=== PATIENT | male | born 1940 | race Caucasian/White ===

== ENCOUNTER 2017-12-24 12:53 | Emergency (ER) | payer OTHER ==
--- NOTE | 2017-12-24 13:30 | CPEKG ---
Test Reason : OPEN Blood Pressure : / mmHG Vent. Rate : 091 BPM Atrial Rate : 091 BPM P-R Int : 148 ms QRS Dur : 083 ms QT Int : 350 ms P-R-T Axes : 045 050 059 degrees QTc Int : 431 ms Sinus rhythm Confirmed by Ian Arango ([id number]) on 12/24/2017 1:29:32 PM Referred By: Confirmed By:Ian Arango
--- NOTE | 2017-12-24 13:54 | EDPHY ---
H & P Time Seen by Provider: 12/24/17 13:01 HPI/ROS: Chief complaint. Fatigue, shortness of breath HPI. Patient is 77-year-old male presents emergency department with complaint that for the past 3 days he does not have any energy and he is fatigued after normal activity. It began 3 days ago after a bike ride when he came home and he was unusually tired. 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 Today he was [facility]ering [facility] and caring some heavy things and again felt very tired. He feels slightly short of breath. He did have vomiting x3 today however no abdominal pain. Denies upper respiratory symptoms. No fever. No cough. No abdominal pain. No urinary symptoms. No diarrhea. He notes that his urine was quite dark yesterday and increased fluids. He has a history of lymphoma and apparently over the last several months the lymphomas come back and he has been on a new medication for the past 3 months. No chest pain. No unusual leg pain or swelling ROS Constitutional. Fatigue Eyes. no problems with vision ENT. no sore throat, no nasal drainage Cardiovascular. no chest pain Respiratory. Slight shortness of breath without cough Abdominal. No abdominal pain but vomiting x3. . no problems urinating MS. no calf pain/swelling, no neck/back pain, no joint pain Skin. no rash Lymph. no swollen glands Neuro. no headache, no dizziness, no difficulty walking or with speech Past Medical/Surgical History: Lymphoma Social History: , nonsmoker, no alcohol Smoking Status: Former smoker Physical Exam: General Appearance: Alert well-developed male mild distress vital signs significant for heart rate 95 and O2 saturation 92%. Blood pressure 104/60 Eyes: Pupils equal and round no pallor or injection. ENT, pharynx without injection. Mucous membranes are moist Respiratory: No retractions. Maybe slight rales and rhonchi in the right lower lobe Cardiovascular: Regular rate and rhythm. Gastrointestinal: Abdomen is soft and nontender, no masses, bowel sounds normal. Neurological: Awake and alert, sensory and motor exams grossly normal. Skin: Warm and dry, no rashes. Musculoskeletal: Neck is supple nontender. Extremities symmetrical, full range of motion. Psychiatric: Patient is oriented X 3, there is no agitation. Constitutional: Initial Vital Signs Temperature (C) 36.6 C 12/24/17 12:57 Heart Rate 95 12/24/17 12:57 Respiratory Rate 18 12/24/17 12:57 Blood Pressure 104/60 12/24/17 12:57 O2 Sat (%) 92 12/24/17 12:57 O2 Delivery Mode Room Air Allergies/Adverse Reactions: No Known Allergies Allergy (Verified 12/24/17 12:56) Home Medications: Medication Instructions Recorded Albuterol Hfa Anes Only [Proair 2 puffs IH QID PRN #1 mdi 12/24/17 Hfa Icu (*)] Calquence 12/24/17 Medical Decision Making - Diagnostics EKG Interpretation: EKG interpreted by me shows normal sinus rhythm normal interval and axis. QRS is normal there is no significant ST elevation or depression. There is no arrhythmia. The rate is 91 Imaging Results: Imaging Impressions Chest X-Ray 12/24/17 13:55 Impression: Large lung findings suggest emphysema/COPD. No pneumonia or failure. Chest x-ray reviewed by me shows evidence of COPD. No obvious pneumonia. Procedures: IV normal saline ED Course/Re-evaluation: Labs reviewed by me and are normal. Mild CHF on BNP. However no clinical findings of CHF. He does not meet criteria for pulmonary embolus. EKG is normal troponin is normal. Chest x-ray shows evidence for COPD. No evidence for infection or sepsis On re-evaluation 3:00 p.m. Patient is stable. The patient, his , and I discussed imaging lab EKG study results. We discussed treatment plan including criteria for return and importance of follow-up and further evaluation. They expressed understanding and agreement. Patient declines prescription for prednisone Differential Diagnosis: See above discussion - Data Points Laboratory Results: Laboratory Results 12/24/17 13:55 12/24/17 13:10 12/24/17 12/24/17 12/24/17 14:20 13:55 13:18 WBC 3.97 10^3/uL 10^3/uL (3.80-9.50) RBC 4.21 10^6/uL L 10^6/uL (4.40-6.38) Hgb 14.0 g/dL g/dL (13.7-17.5) Hct 41.4 % % (40.0-51.0) MCV 98.3 fL fL (81.5-99.8) MCH 33.3 pg pg (27.9-34.1) MCHC 33.8 g/dL g/dL (32.4-36.7) RDW 13.5 % % (11.5-15.2) Plt Count 62 10^3/uL L 10^3/uL (150-400) MPV 10.7 fL fL (8.7-11.7) Neut % (Auto) Not Reported Lymph % (Auto) Not Reported [place] % (Auto) Not Reported Eos % (Auto) Not Reported Baso % (Auto) Not Reported Nucleat RBC Rel Count Not Reported Absolute Neuts (auto) Not Reported Absolute Lymphs (auto) Not Reported Absolute Monos (auto) Not Reported Absolute Eos (auto) Not Reported Absolute Basos (auto) Not Reported Absolute Nucleated RBC Not Reported Immature Gran % Not Reported Seg Neutrophils % 77.3 % % Band Neutrophils % 9.3 % % Lymphocytes % 4.1 % % Monocytes % 9.3 % % Eosinophils % 0.0 % % Basophils % 0.0 % % Metamyelocytes % 0.0 % % Myelocytes % 0.0 % % Promyelocytes % 0.0 % % Blast Cells % 0.0 % % Immature Gran # Not Reported Absolute Seg Neuts 3.07 10^/uL 10^/uL (1.70-6.50) Absolute Band Neuts 0.37 10^3/uL 10^3/uL (0.00-0.70) Absolute Lymphocytes 0.16 10^3/uL L 10^3/uL (1.00-3.00) Absolute Monocytes 0.37 10^3/uL 10^3/uL (0.30-0.80) Absolute Eosinophils 0.00 10^3/uL L 10^3/uL (0.03-0.40) Absolute Basophils 0.00 10^3/uL L 10^3/uL (0.02-0.10) Absolute Metamyelocyte 0.00 10^3/mL 10^3/mL (0.00-0.00) Absolute Myelocytes 0.00 10^3/mL 10^3/mL (0.00-0.00) Absolute Promyelocytes 0.00 10^3/uL 10^3/uL (0.00-0.00) Absolute Plasma Cells 0.00 10^3/uL 10^3/uL (0.00-0.00) Nucleated RBCs 0 /100 WBC /100 WBC (0-0) Absolute Blast Cells 0.00 10^3/uL 10^3/uL (0.00-0.00) Plasma Cells % 0.0 % % Toxic Granulation PRESENT H Platelet Estimate DECREASED L (ADEQ) VBG Lactic Acid 0.7 mmol/L mmol/L (0.7-2.1) Sodium Potassium Chloride Carbon Dioxide Anion Gap BUN Creatinine Estimated GFR Glucose Calcium POC Troponin I 0.01 ng/mL ng/mL (0.00-0.08) NT-Pro-B Natriuret Pep 12/24/17 13:10 WBC RBC Hgb Hct MCV MCH MCHC RDW Plt Count MPV Neut % (Auto) Lymph % (Auto) [place] % (Auto) Eos % (Auto) Baso % (Auto) Nucleat RBC Rel Count Absolute Neuts (auto) Absolute Lymphs (auto) Absolute Monos (auto) Absolute Eos (auto) Absolute Basos (auto) Absolute Nucleated RBC Immature Gran % Seg Neutrophils % Band Neutrophils % Lymphocytes % Monocytes % Eosinophils % Basophils % Metamyelocytes % Myelocytes % Promyelocytes % Blast Cells % Immature Gran # Absolute Seg Neuts Absolute Band Neuts Absolute Lymphocytes Absolute Monocytes Absolute Eosinophils Absolute Basophils Absolute Metamyelocyte Absolute Myelocytes Absolute Promyelocytes Absolute Plasma Cells Nucleated RBCs Absolute Blast Cells Plasma Cells % Toxic Granulation Platelet Estimate VBG Lactic Acid Sodium 135 mEq/L mEq/L (135-145) Potassium 4.0 mEq/L mEq/L (3.3-5.0) Chloride 100 mEq/L mEq/L (97-110) Carbon Dioxide 25 mEq/l mEq/l (22-31) Anion Gap 10 mEq/L mEq/L (8-16) BUN 25 mg/dL H mg/dL (7-23) Creatinine 1.1 mg/dL mg/dL (0.7-1.3) Estimated GFR > 60 Glucose 126 mg/dL H mg/dL (70-100) Calcium 9.0 mg/dL mg/dL (8.5-10.4) POC Troponin I NT-Pro-B Natriuret Pep 783 pg/mL H pg/mL (0-450) Medications Given: Discontinued Medications Sodium Chloride (Ns) 1,000 mls @ 0 mls/hr IV ONCE ONE; Wide Open PRN Reason: Protocol Stop: 12/24/17 13:56 Last Admin: 12/24/17 14:14 Dose: 1,000 mls Point of Care Test Results: Chemistry 12/24/17 13:18 POC Troponin I 0.01 ng/mL ng/mL (0.00-0.08) Departure - Departure Disposition: Home, Routine, Self-Care Clinical Impression: Chronic obstructive pulmonary disease with acute exacerbation Condition: Good Instructions: COPD (Chronic Obstructive Pulmonary Disease) (ED) Additional Instructions: Use the inhaler 2 puffs every 4-6 hours to help with breathing Drink plenty of fluids and stay hydrated. Easy activity next 1-2 days. Return for worsening symptoms. Re-evaluation in 2 days if not improved Referrals: Sunitha Salazar MD [Primary Care Provider] - 2-3 days, if not improved Prescriptions: Albuterol Hfa Anes Only [Proair Hfa Icu (*)] 2 puffs IH QID PRN #1 mdi PRN Reason: Short Of Breath/Dyspnea
[2017-12-24] MEDS ORDERED: NS 1,000 ML IV ONE (13:55)
[2017-12-24 14:30] LABS: PLATELET COUNT 62 10^3/uL (150-400)
[2017-12-24 15:24] VITALS: BP 125/70
== END 2017-12-24 15:24 | disposition home or self-care (01) ==
DX: R06.02 Shortness of breath (principal); J44.9 Chronic obstructive pulmonary disease, unspecified; C85.90 Non-Hodgkin lymphoma, unspecified, unspecified site; E86.9 Volume depletion, unspecified
CPT/HCPCS: 84484-PO

== ENCOUNTER 2018-03-07 15:35 | Inpatient (IN) | payer OTHER ==
[2018-03-07 15:58] LABS: PLATELET COUNT 153 10^3/uL (150-400)
--- NOTE | 2018-03-07 16:08 | EDPHY ---
H & P Time Seen by Provider: 03/07/18 15:51 HPI/ROS: CHIEF COMPLAINT: Malaise, nausea, vomiting, fever HISTORY OF PRESENT ILLNESS: The patient is a 69-year-old male with a complicated past medical history. Patient has a history of lymphoma. 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 He was not [facility] for 10 days and discharged on February 09. The family was told that the virus cross the blood brain barrier and caused him to have encephalopathy as well as meningitis. This was diagnosed through a lumbar puncture. The patient states that he developed a fever today to 101. He had multiple episodes of nausea and vomiting. No diarrhea. No abdominal pain. Patient has no focal weakness or numbness. No visual change. No neck stiffness. No photophobia. The patient's family states that he is more confused from his baseline. This is been progressing more rapidly over the past few days. REVIEW OF SYSTEMS: 10 systems were reveiwed and are negative with the exception of the elements mentioned in the history of present illness. 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 He was discharged from [facility] to [facility] at the end of January. Smoking Status: Former smoker Physical Exam: 36.8, 123/76, 84, 28, 98% on room air GENERAL: No acute distress, alert. HEENT: Eyes normal to inspection, normal pharynx, no signs of dehydration. NECK: Normal, supple. No meningismus RESPIRATORY: Clear to auscultation bilaterally, no rales, rhonchi or wheezing. CVS: Regular rate and rhythm, no rubs, murmurs, or gallops. ABDOMEN: Soft, nontender, nondistended, no organomegaly. BACK: Normal to inspection, no CVA tenderness. SKIN: Normal color, no rash, warm, dry. No pallor. EXTREMITIES: No pedal edema, no calf tenderness, no Homans sign or cords, no joint swelling. NEURO/PSYCH: Higher functions: Alert and Oriented x3. Normal speech and cognition. Normal mood and affect. Patient with short-term memory. (noted the family thinks the patient is confused from baseline) Cranial nerves: Normal as tested. Cerebellar: Normal as tested. Good finger to nose, good [id number], normal gait. Peripheral exam: Normal motor exam. Normal sensation. Normal reflexes. Constitutional: Initial Vital Signs Temperature (C) 36.8 C 03/07/18 15:45 Heart Rate 84 03/07/18 15:45 Respiratory Rate 28 H 03/07/18 15:45 Blood Pressure 123/76 H 03/07/18 15:45 O2 Sat (%) 93 03/07/18 15:45 O2 Delivery Mode Room Air O2 (L/minute) 2 Allergies/Adverse Reactions: No Known Allergies Allergy (Verified 12/24/17 12:56) Home Medications: Medication Instructions Recorded Albuterol Hfa Anes Only [Proair 2 puffs IH QID PRN #1 mdi 12/24/17 Hfa Icu (*)] [place]quence 12/24/17 Medical Decision Making - Diagnostics Imaging Results: Imaging Impressions Chest X-Ray 03/07/18 16:11 Impression: 1. No acute findings in the chest. 2. COPD/emphysema. 3. Additional findings as above. Head CT 03/07/18 16:12 Impression: 1. No acute intracranial findings. 2. Diffuse cerebral atrophy with periventricular and subcortical low attenuation consistent with chronic microvascular ischemic gliosis. Findings discussed with KELLY MCKEON 03/07/2018 at 16:57. ED Course/Re-evaluation: In the emergency department I initially evaluated the patient. I discussed the plan with the family and answered all her questions. Laboratory studies, chest x-ray, head CT, EKG were ordered. Patient was placed on droplet precautions. Patient's sodium is low 132. I compared this with a previous value of 135. Her potassium is normal 3.9. Chloride low at 94. Anion gap is 12 %period% creatinine is 1.0. Calcium is normal. Patient's white count is normal at 6.4. Hematocrit 37.8. Platelet count is 153. Lactic acid is 0.9. EKG shows normal sinus rhythm, normal rate, normal axis, normal intervals. There are no ST or T-wave abnormalities. EKG is normal as interpreted by me. On recheck the patient is stable. Head CT: Please refer the dictated report. No acute disease noted. Chest x-ray: COPD. No infiltrate. I discussed the results with the patient and family. I answered all her questions. On recheck the patient stated he was feeling well. He had no complaints of headache. Vital signs were stable. I discussed the plan for admission. I answered all her questions. I discussed case with Dr. Connors. He will admit the patient. Patient will be kept on droplet precautions. Differential Diagnosis: My differential includes but is not limited to meningitis, encephalitis, encephalopathy, electrolyte abnormality, sugar abnormality, bacteremia, sepsis, gastroenteritis Critical Care Time: Patient required 35 min of critical care time. This was exclusive of any unbundled procedure. This was due to the patient's presentation, discussion with family, review of old records, recent history of encephalitis and meningitis, need for isolation, and admission. - Data Points Laboratory Results: Laboratory Results 03/07/18 15:52 03/07/18 15:52 03/07/18 03/07/18 03/07/18 16:20 16:17 15:52 WBC RBC Hgb Hct MCV MCH MCHC RDW Plt Count MPV Neut % (Auto) Lymph % (Auto) [place] % (Auto) Eos % (Auto) Baso % (Auto) Nucleat RBC Rel Count Absolute Neuts (auto) Absolute Lymphs (auto) Absolute Monos (auto) Absolute Eos (auto) Absolute Basos (auto) Absolute Nucleated RBC Immature Gran % Immature Gran # PT 13.2 SEC SEC (12.0-15.0) INR 0.98 (0.83-1.16) APTT 27.4 SEC SEC (23.0-38.0) VBG Lactic Acid 0.9 mmol/L mmol/L (0.7-2.1) Sodium 132 mEq/L L mEq/L (135-145) Potassium 3.9 mEq/L mEq/L (3.3-5.0) Chloride 94 mEq/L L mEq/L (97-110) Carbon Dioxide 26 mEq/l mEq/l (22-31) Anion Gap 12 mEq/L mEq/L (6-14) BUN 15 mg/dL mg/dL (7-23) Creatinine 1.0 mg/dL mg/dL (0.7-1.3) Estimated GFR > 60 Glucose 124 mg/dL H mg/dL (70-100) Calcium 9.8 mg/dL mg/dL (8.5-10.4) Total Bilirubin Conjugated Bilirubin Unconjugated Bilirubin AST ALT Alkaline Phosphatase Total Protein Albumin Lipase 03/07/18 03/07/18 15:52 15:30 WBC 6.44 10^3/uL 10^3/uL (3.80-9.50) RBC 3.89 10^6/uL L 10^6/uL (4.40-6.38) Hgb 13.3 g/dL L g/dL (13.7-17.5) Hct 37.8 % L % (40.0-51.0) MCV 97.2 fL fL (81.5-99.8) MCH 34.2 pg H pg (27.9-34.1) MCHC 35.2 g/dL g/dL (32.4-36.7) RDW 15.2 % % (11.5-15.2) Plt Count 153 10^3/uL 10^3/uL (150-400) MPV 9.6 fL fL (8.7-11.7) Neut % (Auto) 73.8 % % (39.3-74.2) Lymph % (Auto) 16.5 % % (15.0-45.0) [place] % (Auto) 8.9 % % (4.5-13.0) Eos % (Auto) 0.2 % L % (0.6-7.6) Baso % (Auto) 0.3 % % (0.3-1.7) Nucleat RBC Rel Count 0.0 % % (0.0-0.2) Absolute Neuts (auto) 4.76 10^3/uL 10^3/uL (1.70-6.50) Absolute Lymphs (auto) 1.06 10^3/uL 10^3/uL (1.00-3.00) Absolute Monos (auto) 0.57 10^3/uL 10^3/uL (0.30-0.80) Absolute Eos (auto) 0.01 10^3/uL L 10^3/uL (0.03-0.40) Absolute Basos (auto) 0.02 10^3/uL 10^3/uL (0.02-0.10) Absolute Nucleated RBC 0.00 10^3/uL 10^3/uL (0-0.01) Immature Gran % 0.3 % % (0.0-1.1) Immature Gran # 0.02 10^3/uL 10^3/uL (0.00-0.10) PT INR APTT VBG Lactic Acid Sodium Potassium Chloride Carbon Dioxide Anion Gap BUN Creatinine Estimated GFR Glucose Calcium Total Bilirubin 1.1 mg/dL mg/dL (0.1-1.4) Conjugated Bilirubin 0.2 mg/dL mg/dL (0.0-0.5) Unconjugated Bilirubin 0.9 mg/dL mg/dL (0.0-1.1) AST 25 IU/L IU/L (17-59) ALT 24 IU/L IU/L (21-72) Alkaline Phosphatase 72 IU/L IU/L (38-126) Total Protein 7.0 g/dL g/dL (6.3-8.2) Albumin 4.4 g/dL g/dL (3.5-5.0) Lipase 143 IU/L IU/L (23-300) Medications Given: Discontinued Medications Sodium Chloride (Ns) 500 mls @ 0 mls/hr IV ONCE ONE PRN Reason: Wide Open Stop: 03/07/18 16:12 Last Admin: 03/07/18 16:58 Dose: 500 mls Ondansetron HCl (Zofran) 4 mg IVP EDNOW ONE Stop: 03/07/18 16:13 Last Admin: 03/07/18 17:05 Dose: Not Given Departure - Departure Disposition: [facility] Clinical Impression: Malaise Fever Qualifiers: Fever type: unspecified Qualified Code(s): R50.9 - Fever, unspecified Condition: Good Referrals: Patient,NotPresent [Unknown] - As per Instructions
[2018-03-07] MEDS ORDERED: NS 500 ML IV ONE (16:11)
[2018-03-07] MEDS ORDERED: ONDANSETRON 4 MG/2 ML VIAL IVP ONE (16:12)
[2018-03-07 16:30] LABS: INR 0.98 (0.83-1.16); PROTIME(PATIENT) 13.2 SEC (12.0-15.0)
[2018-03-07] MEDS ORDERED: ONDANSETRON 4 MG/2 ML VIAL IVP PRN (17:23)
[2018-03-07] MEDS ORDERED: ZOLPIDEM TARTRATE 5 MG TAB PO PRN (17:23)
[2018-03-07] MEDS ORDERED: ACETAMINOPHEN 325 MG TAB PO PRN (17:23)
[2018-03-07] MEDS: NS 1,000 ML IV SCH (18:40)
--- NOTE | 2018-03-07 19:44 | PDGENHP ---
History and Physical - Chief Complaint Nausea, vomiting, confusion - History of Present Illness 77 y/o male presents to the ED with malaise, nausea, fevers and vomiting. In January 2018, he was diagnosed with West Nile Virus and subsequently, encephalopathy. He was at [facility] for 10 days and then transitioned to [facility]. The family was told it crossed the BBB and he also had meningitis based on the lumbar puncture that was performed. This is my first encounter with the pt. Family was not present at this encounter. He is awake and alert, eating eggs and vaca with no apparent distress. I am unsure of his cognitive baseline but he answered all my questions correctly and appropriately however did continue to struggle with his memory. His and his stepson are the ones that brought him into the hospital. He reports he resided at [facility] for only 6 days and then went back home with his . Onset of current symptoms was yesterday. He reports malaise, nausea, vomiting x 8 episodes clear liquid, and fever of 101. He was disoriented, forgetting where the bathroom was in his home. Denies chest pains, SOB, diarrhea, dysuria, neck pain/stiffness, photophobia. Subjective: "I am feeling better now." Past Medical/Surgical History 1. Thrombocytopenia 2. Lymphoma (diagnosed 6 months ago) 3. COPD Social 1. Former smoker 2. Lives in a 3-story condo with his , Dorothy. 3. Drinks 2 glasses of red wine/day 4. Smokes cannabis occasionally Vital Signs 129/75 90 HR 18 Respirations 98 % 1L NC 36.6c History Information - Allergies/Home Medication List Allergies/Adverse Reactions: No Known Allergies Allergy (Verified 12/24/17 12:56) Home Medications: Herbals/Supplements -Info Only 1 ea PO DAILY 03/07/18 [Last Taken Unknown] Tamsulosin HCl [Flomax 0.4 MG (*)] 0.4 mg PO HS 03/07/18 [Last Taken 03/07/18 01 :00] I have personally reviewed and updated: family history, medical history, social history, surgical history Past Medical History: See HPI List - Surgical History Additional surgical history: See HPI List - Family History Positive for: non-pertinent - Social History Smoking Status: Former smoker Alcohol Use: Occasionally Drug Use: Marijuana Additional social history: See HPI List Review of Systems Review of Systems: ROS: 10pt was reviewed & negative except for what was stated in HPI & below Constitutional: Reports: fever, malaise EENMT: Reports: no symptoms Cardiac: Reports: no symptoms Respiratory: Reports: no symptoms Gastrointestinal: Reports: vomitting, constipation, nausea Genitourinary: Reports: no symptoms Muscolosketal: Reports: no symptoms Skin: Reports: no symptoms Neurological: Reports: no symptoms Hematologic/Lymphatic: Reports: no symptoms Immunologic/Allergy: Reports: no symptoms Physical Exam Physical Exam: Lab data and imaging reviewed Head CT: No acute intracranial findings CXR: No acute findings. Mild COPD. EKG: NSR Temp Pulse Resp BP Pulse Ox 36.6 C 90 18 129/75 H 98 03/07/18 19:23 03/07/18 19:23 03/07/18 19:23 03/07/18 19:23 03/07/18 19:23 O2 (L/minute) 1 Constitutional: no apparent distress, appears nourished, not in pain Eyes: PERRL, anicteric sclera, EOMI Ears, Nose, Mouth, Throat: moist mucous membranes, hearing normal, ears appear normal, no oral mucosal ulcers Cardiovascular: regular rate and rhythym, no murmur, rub, or gallop, No edema Peripheral Pulses: 2+: dorsalis-pedis (R) (Radial 2+), dorsalis-pedis (L) ( Radial 2+) Respiratory: no respiratory distress, no rales or rhonchi, clear to auscultation Gastrointestinal: normoactive bowel sounds, soft, non-tender abdomen, no palpable masses Genitourinary: no bladder fullness, no bladder tenderness Skin: warm, normal color, no rashes or abrasions, no fluctuance, no induration, No mottled Musculoskeletal: full muscle strength, no muscle tenderness, normal joint ROM, no joint effusions Neurologic: AAOx3, sensation intact bilaterally, CN II-XII Intact Psychiatric: interacting appropriately, not anxious, poor memory Lymph, Heme, Immunologic: no cervical LAD, no supraclavicular LAD Lab Data & Imaging Review 03/07/18 15:52 03/07/18 15:52 WBC 6.44 10^3/uL (3.80-9.50) 03/07/18 15:52 RBC 3.89 10^6/uL (4.40-6.38) L 03/07/18 15:52 Hgb 13.3 g/dL (13.7-17.5) L 03/07/18 15:52 Hct 37.8 % (40.0-51.0) L 03/07/18 15:52 MCV 97.2 fL (81.5-99.8) 03/07/18 15:52 MCH 34.2 pg (27.9-34.1) H 03/07/18 15:52 MCHC 35.2 g/dL (32.4-36.7) 03/07/18 15:52 RDW 15.2 % (11.5-15.2) 03/07/18 15:52 Plt Count 153 10^3/uL (150-400) 03/07/18 15:52 MPV 9.6 fL (8.7-11.7) 03/07/18 15:52 Neut % (Auto) 73.8 % (39.3-74.2) 03/07/18 15:52 Lymph % (Auto) 16.5 % (15.0-45.0) 03/07/18 15:52 [place] % (Auto) 8.9 % (4.5-13.0) 03/07/18 15:52 Eos % (Auto) 0.2 % (0.6-7.6) L 03/07/18 15:52 Baso % (Auto) 0.3 % (0.3-1.7) 03/07/18 15:52 Nucleat RBC Rel Count 0.0 % (0.0-0.2) 03/07/18 15:52 Absolute Neuts (auto) 4.76 10^3/uL (1.70-6.50) 03/07/18 15:52 Absolute Lymphs (auto) 1.06 10^3/uL (1.00-3.00) 03/07/18 15:52 Absolute Monos (auto) 0.57 10^3/uL (0.30-0.80) 03/07/18 15:52 Absolute Eos (auto) 0.01 10^3/uL (0.03-0.40) L 03/07/18 15:52 Absolute Basos (auto) 0.02 10^3/uL (0.02-0.10) 03/07/18 15:52 Absolute Nucleated RBC 0.00 10^3/uL (0-0.01) 03/07/18 15:52 Immature Gran % 0.3 % (0.0-1.1) 03/07/18 15:52 Immature Gran # 0.02 10^3/uL (0.00-0.10) 03/07/18 15:52 PT 13.2 SEC (12.0-15.0) 03/07/18 16:17 INR 0.98 (0.83-1.16) 03/07/18 16:17 APTT 27.4 SEC (23.0-38.0) 03/07/18 16:17 VBG Lactic Acid 0.9 mmol/L (0.7-2.1) 03/07/18 16:20 Sodium 132 mEq/L (135-145) L 03/07/18 15:52 Potassium 3.9 mEq/L (3.3-5.0) 03/07/18 15:52 Chloride 94 mEq/L (97-110) L 03/07/18 15:52 Carbon Dioxide 26 mEq/l (22-31) 03/07/18 15:52 Anion Gap 12 mEq/L (6-14) 03/07/18 15:52 BUN 15 mg/dL (7-23) 03/07/18 15:52 Creatinine 1.0 mg/dL (0.7-1.3) 03/07/18 15:52 Estimated GFR > 60 03/07/18 15:52 Glucose 124 mg/dL (70-100) H 03/07/18 15:52 Calcium 9.8 mg/dL (8.5-10.4) 03/07/18 15:52 Total Bilirubin 1.1 mg/dL (0.1-1.4) 03/07/18 15:30 Conjugated Bilirubin 0.2 mg/dL (0.0-0.5) 03/07/18 15:30 Unconjugated Bilirubin 0.9 mg/dL (0.0-1.1) 03/07/18 15:30 AST 25 IU/L (17-59) 03/07/18 15:30 ALT 24 IU/L (21-72) 03/07/18 15:30 Alkaline Phosphatase 72 IU/L (38-126) 03/07/18 15:30 POC Troponin I 0.02 ng/mL (0.00-0.08) 03/07/18 16:59 Total Protein 7.0 g/dL (6.3-8.2) 03/07/18 15:30 Albumin 4.4 g/dL (3.5-5.0) 03/07/18 15:30 Lipase 143 IU/L (23-300) 03/07/18 15:30 Assessment & Plan Plan: A/P 1. Nausea, vomiting: anti-emetics PRN. Resp PCR, UA pending to see if bacteria vs viral is causative factor. Blood cultures pending. IVF. 2. Constipation: bowel regimen. He reports last bowel movement was yesterday but stool was hard. 3. Encephalopathy: cognitive baseline unknown. Continue to monitor. Once again , for me he is A&Ox4 but poor memory. Avoid narcotics. 4. Lymphoma: diagnosed 6 months ago. Since his West Nile Virus diagnosis, he stopped taking Calquence per his oncologist. His is anemic and hyponatremic. Continue to monitor these numbers as it is not unusual for those with cancer to experience these. Diet: Regular Code: DNR VTE ppx: Lovenox SubQ Dispo: Admit to inpatient
[2018-03-07] MEDS ORDERED: LACTULOSE 20 GM/30 ML UDCUP PO PRN (20:01)
[2018-03-07] MEDS ORDERED: BISACODYL 10 MG SUPP PR PRN (20:01)
[2018-03-07] MEDS ORDERED: POLYETHYLENE GLYCOL 3350 17 GM PKT PO PRN (20:01)
[2018-03-07] MEDS ORDERED: MAGNESIUM HYDROXIDE 30 ML UDCUP PO PRN (20:01)
[2018-03-07] MEDS: SENNOSIDES/DOCUSATE SODIUM TAB PO SCH (20:34)
[2018-03-07] MEDS: MELATONIN 3 MG TAB PO SCH (20:34)
[2018-03-07] MEDS: TAMSULOSIN HCL 0.4 MG CAP PO SCH (20:34)
--- NOTE | 2018-03-07 22:22 | PDGENHP ---
History and Physical History and Physical: I saw this patient today along with Veronica Lanier nurse practitioner. 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 I have reviewed the list and ordered appropriate medicines. PHYSICAL EXAMINATION: Vital Signs: Stable vital signs here without fever Value Analyst: Examination: General: Groggy, but arouses easily, mentation shows him to be a bit slow but answering questions appropriately, has some memory deficit Skin: warm, dry, good color, no rash HEENT: normal Neck: no mass or jvd Resps: relaxed Lungs: clear breath sounds Heart: regular, no murmur Abdomen: soft, nondistended, nontender, +BS, no mass Upper Extremities: normal Lower Extremities: no edema, warm No Bleeding or bruising IV site: looks normal LABORATORY DATA: Minimal normocytic anemia otherwise normal CBC Normal liver panel Lipase normal Sodium 132 otherwise unremarkable basic metabolic panel RADIOLOGY STUDIES: Chest x-ray with COPD but otherwise unremarkable on my reading 12 LEAD EKG: Normal EKG by my reading ASSESSMENT: * Acute febrile illness with nausea vomiting, nausea vomiting now spontaneously resolved; uncertain cause of this illness -differential diagnosis include influenza or other viral illness, gallbladder disease (unlikely given benign exam and laboratory data), UTI * Recent West Nile virus encephalitis, recovering slowly but making but sounds like reasonable progress * Mental cell lymphoma in remission since 2013 * Coronary disease by history with no evidence of acute symptoms or exacerbation now * COPD appears stable now PLANS: * Observation overnight * IV hydration * Antiemetics as needed * Follow fever curve * Respiratory pathogen panel has been obtained pending * Blood cultures obtained and pending I have reviewed the patient's case in detail with Dr. Hawa Ornelas I have reviewed the patient's past medical records as part of this assessment, including oncology records from [facility], outpatient clinic records from our system
[2018-03-08 04:42] LABS: PLATELET COUNT 112 10^3/uL (150-400)
[2018-03-08] MEDS: NS 1,000 ML IV SCH (07:34)
[2018-03-08] MEDS: SENNOSIDES/DOCUSATE SODIUM TAB PO SCH ×2 (09:13→21:16)
--- NOTE | 2018-03-08 09:17 | ASMTCMCOM ---
CM Note CM Note Notes: 03/08/2018 Case Management Note Reviewed chart. Pt admitted for fever, N/V, general malaise. History of west nile encephalitis, lymphoma in remission since 2013, CAD, ascending aortic aneurysm, thrombocytopenia and hyperlipidemia. PT OT evals are pending. Pt is and living independently prior to admission. Case Management d/c poc: to be determined. Case Management to follow. Date Signed: 03/08/2018 09:16 AM Electronically Signed By:Yue Diego RN
[2018-03-08] MEDS: ENOXAPARIN 40 MG/0.4 ML SYR SC SCH (10:00)
--- NOTE | 2018-03-08 12:23 | HOSPPROG ---
Hospitalist Progress Note Assessment/Plan: German Padilla is a 77 y/o male presents to the ED with malaise, nausea, fevers and vomiting. He was diagnosed recently w West Nile and had associated encephalopathy. He was noted to have meningitis from this. He had a fever of 101 and some vomiting. First encounter, chart reviewed. *acute febrile illness w nausea and vomiting -resolved -PCR pathogen negative -blood cx pending *recent West Nile encephalitis -concern he has residuals from this *mantle cell lymphoma -in remission since 2013 -seen at [facility] -Dr Cobian -have asked for records to be sent to see if he has had a recent MRI *COPD -no complaints *cad *gait instability -per the patient and his , he is falling more and having worsening memory issues -the short term memory is worsening yesica recently (could be residual from the encephalitis he had from West Nile) *memory issues -worsening, has no focal s/sx of stroke *Plan: he is falling at home, his is very concerned about him getting hurt. Will ask for his recent records from [facility] to be sent here today, ask neurology to weigh in. He will need another midnight stay for further evaluation. Subjective: German is struggling w short term memories. Objective: Vital Signs Temp Pulse Resp BP Pulse Ox 36.4 C 88 18 134/71 H 94 03/08/18 11:33 03/08/18 11:33 03/08/18 11:33 03/08/18 11:33 03/08/18 11:33 Microbiology 03/07/18 20:30 Respiratory Panel (PCR) - Final Nasal, Sinus - Swab No Organism Detected By Pcr Laboratory Results 03/08/18 04:25 03/08/18 04:25 03/07/18 03/08/18 03/09/18 05:59 05:59 05:59 Intake Total 850 Output Total 600 280 Balance 250 -280 PT 13.2 SEC (12.0-15.0) 03/07/18 16:17 INR 0.98 (0.83-1.16) 03/07/18 16:17 - Physical Exam Constitutional: other (underweight) Eyes: PERRL Ears, Nose, Mouth, Throat: hearing normal Cardiovascular: regular rate and rhythym, no murmur, rub, or gallop Respiratory: no respiratory distress Skin: warm Neurologic: AAOx3, sensation intact bilaterally, CN II-XII Intact, No pronator drift, No facial droop Psychiatric: interacting appropriately, not anxious, not encephalopathic, other (has difficulty w short term) ICD10 Worksheet Patient Problems: Problems Problem Status Onset Fever Acute Malaise Acute
--- NOTE | 2018-03-08 16:44 | PDMN ---
Medical Necessity Medical necessity: Pt meets INPT criteria per MD as of 03/08/18 and MCG Systemic or Infectious Condition GRG (est. LOS >2 MN for ongoing eval/mgmt of malaise, gait instability, memory issues, falling at home, concern for getting hurt, recent encephalitis with concern for residuals from this; neurology consult pending; hx lymphoma, COPD, CAD).
--- NOTE | 2018-03-08 17:08 | CPEKG ---
Test Reason : OPEN Blood Pressure : / mmHG Vent. Rate : 079 BPM Atrial Rate : 079 BPM P-R Int : 149 ms QRS Dur : 083 ms QT Int : 412 ms P-R-T Axes : -17 017 058 degrees QTc Int : 473 ms Sinus rhythm Confirmed by Hawa Ornelas ([id number]) on 03/08/2018 5:07:27 PM Referred By: Confirmed By:Hawa Ornelas
[2018-03-08] MEDS: MELATONIN 3 MG TAB PO SCH (21:16)
[2018-03-08] MEDS: TAMSULOSIN HCL 0.4 MG CAP PO SCH (21:16)
[2018-03-09] MEDS: ENOXAPARIN 40 MG/0.4 ML SYR SC SCH (10:48)
[2018-03-09] MEDS: SENNOSIDES/DOCUSATE SODIUM TAB PO SCH ×3 (10:48→23:06)
--- NOTE | 2018-03-09 11:02 | GCON ---
NEUROLOGY CONSULTATION DATE OF CONSULTATION: 03/09/2018 CHIEF COMPLAINT: Confusion, resolved. HISTORY OF PRESENT ILLNESS: The patient is a very pleasant 77-year-old gentleman who had an episode of what appeared to be West Nile encephalitis, meningitis treated at [facility] at the end of January. I did review the labs that were available on his 's phone, including a mild white count in the CSF and a positive IgM West Nile. The patient was discharged from the hospital after a 10-day course approximately. He was in [facility] and improving when he developed another unrelated febrile illness apparently and had some decline, which is now resolving again. He has not had a fever while in the hospital. White count is not elevated. No new neurologic symptoms while in the hospital. No seizures. No meningismus. For past medical history, social history, family history, home medications, allergies, see Dr. Connors's H and P. PHYSICAL EXAMINATION: VITAL SIGNS: Blood pressure 120-140s systolic. The patient is afebrile, 36.3, respirations 16. GENERAL: No acute distress. Very pleasant gentleman generally. No meningismus. NEUROLOGIC: Higher mental function: The patient is awake and alert. No aphasia. Cranial nerve exam normal, 2 through 7. Motor exam: Normal strength and tone throughout. Sensory exam normal. IMPRESSION AND PLAN: 1. Recent West Nile meningoencephalitis, improving. Overall, my impression is the patient had an unrelated viral illness apparently while at [facility], which caused some decline while he was recovering from the West Nile meningoencephalitis. Discussed at length with the patient and his . The primary concern from the patient and his is safety at home. He has some ongoing balance issues, and they are fearful of falling. I agree, and this is reasonable. Going forward, I recommend OT/PT evaluation for placement. He may need inpatient rehab versus a retirement home stay from the hospital. Discussed at length. Discussed with the hospitalist team. No further recommendations now. We will continue to follow as needed. Please do not hesitate to call if there are any questions or changes in neurologic status with this very pleasant patient. Forty-five total minutes floor time today reviewing available records from [facility] via his providing them, counseling and coordination of care. /[id number]/MODL MTDD
--- NOTE | 2018-03-09 11:29 | ASMTCMCOM ---
CM Note CM Note Notes: CM met w/ pt and Dorothy for dispo planning. Dorothy does not feel comfortable taking pt back home at this time. Therapies have been ordered. Dorothy would like referrals made to [facility]. Dorothy plans on going to tour facilities tonight. CM to follow. Plan: SNF Date Signed: 03/09/2018 11:28 AM Electronically Signed By:CHAMP Almaguer
--- NOTE | 2018-03-09 11:44 | ASMTCMCOM ---
CM Note CM Note Notes: CM spoke to MIKO Krueger. Therapies are recommending inpatient rehab. Judith put in a rehab consult. CM spoke to Macey about the rehab consult. She will evaluate. CM to follow. Plan: Inpatient rehab vs SNF Date Signed: 03/09/2018 11:44 AM Electronically Signed By:CHAMP Almaguer
--- NOTE | 2018-03-09 14:18 | HOSPPROG ---
Hospitalist Progress Note Assessment/Plan: German Padilla is a 77 y/o male presents to the ED with malaise, nausea, fevers and vomiting. He was diagnosed recently w West Nile and had associated encephalopathy. He was noted to have meningitis from this. He had a fever of 101 and some vomiting. First encounter, chart reviewed. D/W Dr Mensah. *acute febrile illness w nausea and vomiting -resolved, likely viral -PCR pathogen negative -blood cx NGTD *recent West Nile encephalitis -concern he has residuals from this -appreciate neurology consult *mantle cell lymphoma -in remission since 2013 -seen at [facility] -Dr Cobian -have asked for records to be sent to see if he has had a recent MRI *COPD -no complaints *cad *gait instability -per the patient and his , he is falling more and having worsening memory issues -the short term memory is worsening yesica recently (could be residual from the encephalitis he had from West Nile) *memory issues -worsening, has no focal s/sx of stroke *Plan: he is falling at home, his is very concerned about him getting hurt. Plan for DC to SNF in am if stable Subjective: Up in chair. Feels ok. Better then before. No pain. Still some confusion. Objective: Vital Signs Temp Pulse Resp BP Pulse Ox 36.3 C 99 16 102/59 L 97 03/09/18 08:00 03/09/18 08:00 03/09/18 08:00 03/09/18 08:00 03/09/18 08:00 03/08/18 03/09/18 03/10/18 05:59 05:59 05:59 Output Total 470 Balance -470 PT 13.2 SEC (12.0-15.0) 03/07/18 16:17 INR 0.98 (0.83-1.16) 03/07/18 16:17 - Physical Exam Constitutional: appears nourished, not in pain, chronically ill appearing Eyes: PERRL, anicteric sclera, EOMI Ears, Nose, Mouth, Throat: moist mucous membranes, hearing normal, ears appear normal Cardiovascular: No JVD, No tachycardia, No edema Respiratory: no respiratory distress, no rales or rhonchi, reduced air movement Gastrointestinal: normoactive bowel sounds, No tenderness, No ascites Skin: warm, normal color, No mottled Musculoskeletal: muscular tenderness, abnormal gait, generalized weakness Neurologic: AAOx3 Psychiatric: not encephalopathic, poor insight, poor judgement, poor memory ICD10 Worksheet Patient Problems: Problems Problem Status Onset Malaise Acute Fever Acute
--- NOTE | 2018-03-09 16:01 | ASMTCMCOM ---
CM Note CM Note Notes: M[facility] has accepted pt into their inpatient rehab. CM spoke to Dorothy and noitifed her of the acceptance. Dorothy is concerned that pt will still be confused after the 2 weeks at inpatient rehab. Dorothy plans on speaking to her son before making a decision. CM to follow. Plan: SNF vs Inpatient rehab Date Signed: 03/09/2018 04:01 PM Electronically Signed By:CHAMP Almaguer
[2018-03-09] MEDS: TAMSULOSIN HCL 0.4 MG CAP PO SCH ×2 (21:00→23:07)
[2018-03-09] MEDS: MELATONIN 3 MG TAB PO SCH ×2 (21:00→23:07)
[2018-03-10] MEDS: SENNOSIDES/DOCUSATE SODIUM TAB PO SCH ×2 (08:14→20:29)
[2018-03-10] MEDS: ENOXAPARIN 40 MG/0.4 ML SYR SC SCH (08:15)
--- NOTE | 2018-03-10 10:26 | NEUROPROG ---
Assessment: 1. Recent West Nile meningoencephalitis 2. Confusion, resolving 35 total minutes floor time; including direct counseling and review of interim records. Patient continues to improve after most recent unrelated viral illness. He will go to a intermediate facility in terms of disposition. I have given him my office number and name if he needs to follow-up. No further recommendations. We will continue to follow as needed. Please do not hesitate to call if there are questions or changes in neurologic status with this pleasant patient. Subjective: Improving mental status Objective: Vital Signs Temp Pulse Resp BP Pulse Ox 36.7 C 88 18 102/55 L 96 03/10/18 07:39 03/10/18 09:38 03/10/18 07:39 03/10/18 09:38 03/10/18 07:39 03/09/18 03/10/18 03/11/18 05:59 05:59 05:59 Intake Total 200 Output Total 470 Balance -470 200 PT 13.2 SEC (12.0-15.0) 03/07/18 16:17 INR 0.98 (0.83-1.16) 03/07/18 16:17 Awake alert No aphasia No myoclonus Allergies/Adverse Reactions: No Known Allergies Allergy (Verified 12/24/17 12:56)
--- NOTE | 2018-03-10 14:12 | HOSPPROG ---
Hospitalist Progress Note Assessment/Plan: German Padilla is a 77 y/o male presents to the ED with malaise, nausea, fevers and vomiting. He was diagnosed recently w West Nile and had associated encephalopathy. He was noted to have meningitis from this. He had a fever of 101 and some vomiting. D/W Dr Mensah. *acute febrile illness w nausea and vomiting -resolved, likely viral, now with nausea and vomiting again -PCR pathogen negative -blood cx NGTD *recent West Nile encephalitis -concern he has residuals from this -appreciate neurology consult *mantle cell lymphoma -in remission since 2013 -seen at [facility] -Dr Cobian -have asked for records to be sent to see if he has had a recent MRI *COPD -no complaints *Orthostatic -cards consult ordered -check h/h -ivf bolus *cad *gait instability -per the patient and his , he is falling more and having worsening memory issues -the short term memory is worsening yesica recently (could be residual from the encephalitis he had from West Nile) *memory issues -worsening, has no focal s/sx of stroke *Plan: he is falling at home, his is very concerned about him getting hurt. Plan for DC to inpatient rehab cards consult Subjective: Up in chair. Feels great. Objective: Vital Signs Temp Pulse Resp BP Pulse Ox 36.7 C 88 18 102/55 L 96 03/10/18 07:39 03/10/18 09:38 03/10/18 07:39 03/10/18 09:38 03/10/18 07:39 03/09/18 03/10/18 03/11/18 05:59 05:59 05:59 Intake Total 200 Output Total 470 Balance -470 200 PT 13.2 SEC (12.0-15.0) 03/07/18 16:17 INR 0.98 (0.83-1.16) 03/07/18 16:17 - Physical Exam Constitutional: appears nourished, not in pain, chronically ill appearing Eyes: PERRL, anicteric sclera, EOMI Ears, Nose, Mouth, Throat: moist mucous membranes, hearing normal, ears appear normal Cardiovascular: No JVD, No tachycardia, No edema Respiratory: no respiratory distress, no rales or rhonchi, reduced air movement Gastrointestinal: normoactive bowel sounds, No tenderness, No ascites Skin: warm, normal color, No mottled Musculoskeletal: normal joint ROM, no joint effusions, generalized weakness Psychiatric: not anxious, poor insight, poor judgement, poor memory ICD10 Worksheet Patient Problems: Problems Problem Status Onset Malaise Acute Fever Acute
[2018-03-10] MEDS: NS 1,000 ML IV SCH (14:16)
[2018-03-10] MEDS: MELATONIN 3 MG TAB PO SCH (20:29)
[2018-03-10] MEDS: TAMSULOSIN HCL 0.4 MG CAP PO SCH (20:29)
--- NOTE | 2018-03-10 20:41 | GCON ---
CARDIOLOGY CONSULTATION DATE OF CONSULTATION: 03/10/2018 Primary care was previously [facility]. I had seen him from a cardiology standpoint in 2009, and he has been seen at the [facility] as late as 2013. CHIEF COMPLAINT: Orthostatic hypotension. HISTORY OF PRESENT ILLNESS: We are asked by Judith Elkins NP, to visit with Professor Padilla. 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 He has a history of coronary disease on the basis of a positive calcium score and abnormal stress echocardiogram several years ago. This has been medically managed. He also has a history of lymphoma, ascending aortic aneurysm, dyslipidem ia. Last month, he was hospitalized at the [facility] with West Nile virus complicated by encephalitis an d meningitis. He was discharged to [facility]. He was readmitted to [facility] on 03/07 with fever, elliot sea, vomiting, and confusion. His symptoms have improved and he has been afebrile. Negative culture data. He was seen by Neurology who felt that his more recent febrile illness was unrelated to West Nile and did not require further brain imaging. Orthostatic vital signs were checked today and he was found to be mildly orthostatic, with his blood pressure systolic going from 102 sitting to 82 standing. His history is somewhat vague. He reports that sometimes he is lightheaded, but he has not had synco pe. He has not had any anginal quality chest pain or dyspnea. No palpitations. He reports that las t night he had some diarrhea and still feels nauseated. ALLERGIES: No known drug allergies. PAST MEDICAL HISTORY: 1. Coronary disease on the basis of calcium score. He did have an abnormal stress echocardiogram in 2009, but has declined cardiac catheterization. 2. Ascending aortic aneurysm, approximately 4.5 cm. 3. History of lymphoma, followed at the [facility]. 4. Dyslipidemia. 5. Recent West Nile infection complicated by encephalitis and meningitis. 6. BPH. OUTPATIENT MEDICATIONS: Flomax 0.4 mg nightly, which the patient reports is a relatively new medicat ion for him within the past month. He also takes some supplements including fish oil and multivitamin. 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 He is currently at [facility] , but does live in [facility]. He does not drink alcohol. He is a former smoker. FAMILY HISTORY: Not applicable to the current case. PHYSICAL EXAM: VITAL SIGNS: 123/69. As mentioned, he was mildly orthostatic by systolic blood pres sure earlier today. Heart rate has been in the 80s. Oxygen saturation 90% on room air. He is afebr ile. Respiratory rate 16. GENERAL: Somewhat cachectic elderly male, in no acute distress. HEENT: Sclerae clear and free of jaundice. Mucous membranes moist. Dentition is slightly poor. Normoceph alic, atraumatic. CARDIOVASCULAR: JVP less than 10. Carotids equal and 2+ without bruit. Regular r ate and rhythm without murmur, rub, or gallop. LUNGS: Clear to auscultation without wheeze, rhonchi , or rales. ABDOMEN: Soft, nontender, nondistended, without bruits, masses, or hepatosplenomegaly. EXTREMITIES: Warm and well perfused without cyanosis, clubbing, or edema. NEURO: He is alert and oriented. He does give some appropriate details about his history, but seems a bit confused about al l the details. No gross focal neurologic deficits. LABORATORY DATA: White count on admission 6.5 with hematocrit of 37.8. This has dropped to 32.8 tod ay. Platelets are 153 on admission, 112 on 03/08. INR normal. Admission venous lactic acid normal. Sodium 134, potassium 3.9, chloride 99, bicarb 27, BUN 15, creatinine 1, glucose 114. Troponin neg ative. LFTs normal. Albumin 4.4. Lipase normal. Urinalysis normal. Blood cultures negative and r espiratory panel is negative. EKG reviewed by me: Sinus rhythm without ischemic changes. Chest x-ray reviewed by me. No acute cardiopulmonary process. Head CT: No acute intracranial findings. Diffuse cerebral atrophy with chronic microvascular gliosi s. ASSESSMENT AND PLAN: A 77-year-old male with a history of asymptomatic coronary disease, dilated asc ending aorta, now admitted with febrile illness, having recently had West Nile virus. This appears t o be a separate process, but he is still having some GI effects. He is orthostatic by vital signs an d I think this is a combination of Flomax therapy and volume depletion. 1. Orthostatic hypotension: He is intermittently presyncopal. Agree with IV fluids. I have discus sed the case with Judith Elkins and she will stop his Flomax for now and monitor for BPH symptoms. Wo uld repeat orthostatic vital signs prior to discharge. No indication for midodrine or Florinef at th is time. 2. Ascending aortic aneurysm: I have ordered an echocardiogram to re-evaluate this. This will also demonstrate EF and assess valvular function, although I do not anticipate that he has a primary card iac etiology for his positional drop in blood pressure. 3. Positive calcium score: No angina. Negative troponin. He is currently not on a statin or aspir in. Apparently had significant bruising and has a history of thrombocytopenia, which may have necess itated discontinuation of aspirin. Would not start statin while he is acutely ill, could consider in outpatient setting. Would not perform stress testing at this time. 4. Recent West Nile virus, and now febrile illness: Followed by Hospital Medicine and Neurology. Thank you for this consult. We will follow with you. /[id number]/MODL
[2018-03-11] MEDS: ENOXAPARIN 40 MG/0.4 ML SYR SC SCH (08:11)
[2018-03-11] MEDS: SENNOSIDES/DOCUSATE SODIUM TAB PO SCH (08:11)
--- NOTE | 2018-03-11 09:54 | PDIAF ---
- Diagnosis Diagnosis: fever Code Status: Full Code - Medication Management Discharge Medications: electronically signed and located in the Home Medication List. PICC Care - Routine: N/A - Orders Services needed: Registered Nurse, Physical Therapy, Occupational Therapy, Speech Language Pathologist Isolation Type: None Diet Recommendation: no restrictions on diet - Follow Up Care Current Providers and Referrals: Patient,NotPresent [Unknown] - As per Instructions
--- NOTE | 2018-03-11 10:01 | ASMTLACE ---
[facility] Length of stay for Answers: 3 days current admission Acuity / Level of Answers: Yes Care: Did the patient have an inpatient admission? Comorbidities - select Answers: Any tumor (including all that apply lymphoma or leukemia) Cerebrovascular disease (CVA, TIA, aneurysms, vasc ular dementia) Chronic pulmonary disease Coronary Artery Disease Other Notes: h/o west nile encephalitis, thrombocy top enia, hyperlipidemia # of Emergency department Answers: 3-4 visits in the last 6 months Score: 17 Date Signed: 03/11/2018 10:00 AM Electronically Signed By:Rena Olsen RN
[2018-03-11] MEDS: NS 1,000 ML IV SCH (10:05)
--- NOTE | 2018-03-11 10:16 | ASMTDCNOTE ---
Case Management Discharge Discharge Order Complete? Answers: Yes Patient to Obtain Answers: Other Notes: Inpt Rehab Medications Transportation Arranged Answers: Family/Friends Transport will Pick (Date 03/11/2018 01:00 PM & Time) Case Management Transport Answers: No Form Complete Faxed Final Orders Answers: Yes Agency/Facility Transfer Answers: Yes Report Printed & Faxed to Receiving Agency Family Notified Answers: Yes Discharge Comments Notes: D/W HYDROLOGICAL TECHNICAL OFFICER, met with pt and re; dc plan. P'ts Dorothy will transport pt over to Inpt Rehab, CM gave her phone # to call upon arrival. Offered list of out of pocket transportation services but they declined. Macey at rehab notified and would like pt to dc at 1pm, no stops. RN to call report. Date Signed: 03/11/2018 10:15 AM Electronically Signed By:Rena Olsen RN
[2018-03-11 11:51] VITALS: BP 113/64
--- NOTE | 2018-03-11 12:23 | ECHO ---
[email or web address] [address] [address] Main: [phone] Fax: Transthoracic Echocardiogram Name: CHINMAY MALONE MR#: [id number] Study Date: 03/11/2018 Study Time: 08:44 AM Date of : 1940 Age: 77 year(s) Height: 185.4 cm (73 in.) Weight: 71.67 kg (158 lb.) BSA: 1.95 m2 Gender: Male Examination: Echo Indication: hypotension, hx of ascending aortic aneurysm Image Quality: Adequate Contrast: Requested by: Rhea Lovett BP: 108 mmHg/66 mmHg Heart Rate: Rhythm: Indication: hypotension, hx of ascending aortic aneurysm Procedure Staff Microbiological Analyst: Ary Sharma RDCS Reading Physician: Rhea Lovett MD Requesting Provider: Conclusions: Normal size left ventricle. No LV hypertrophy. Normal global systolic LV function. The ejection fraction is visually estimated to be 55 %. No regional wall motion abnormality. Normal diastolic LV function. Normal size right ventricle. Normal RV function. Mild mitral valve regurgitation is present. Mild tricuspid regurgitation is present. The pulmonary artery pressure is normal. Dilated ascending aorta measuring 4.4 cm. No prior study Measurements: Chambers Valvular Assessment AV/MV Valvular Assessment TV/PV Normal Normal Normal Name Value Range Name Value Range Name Value Range Ao Sally (2D): 3.3 cm (1.4 cm-2.6 AV Vmax: 1.42 m/s (1 m/s-1.7 TR Vmax: 2.62 mm/s ( - ) cm) m/s) TR PGmax: 27 mmHg ( - ) IVSd (2D): 0.9 cm (0.6 cm-1.1 AV maxP mmHg ( - ) syst. PAP: 32 mmHg ( - ) cm) AV meanP mmHg ( - ) PV Vmax: 0.92 m/s (0.6 m/s-0.9 LVDd (2D): 4.8 cm (4.2 cm-5.9 MARYAM (VTI): 2.1 cm ( - ) m/s) cm) MV E Vmax: 0.60 m/s ( - ) PV PGmax: 3 mmHg ( - ) LVDs (2D): 3.9 cm (2.1 cm-4 MV A Vmax: 0.69 m/s ( - ) cm) MV E/A: 0.87 ( - ) LVPWd (2D): 0.9 cm (0.6 cm-1 cm) MV PHT: 0.077 s ( - ) LVOTd 2.0 cm 2.0 cm mm MVA (PHT): 2.9 s ( - ) Visual EF: 55 % Patient: CHINMAY MALONE Study Date: 03/11/2018 Page 1 of 2 08:44 AM RVDd(2D): 3.5 cm (1.9 cm-3.8 cmmm) Continued Measurements: Chambers Valvular Assessment AV/MV Valvular Assessment TV/PV Name Value Name Value Name Value LADs: 3.0 cm MV DecTime: 236 m/s CVP (est.): 5 mmHg LA Volume: 56 ml MV E' Septal: 0.09 m/s LA Volume Index: 28.7 ml/m2 MV E/E' Septal: 6.40 RA Area: 15.7 cm2 MV E/E' Lateral: 4.10 Additional Vessels Name Value Ao Ascendin.4 cm Inferior Vena Cava: 1.5 cm Findings: Left Ventricle: Normal size left ventricle. No LV hypertrophy. Normal global systolic LV function. The ejection fraction is visually estimated to be 55 %. No regional wall motion abnormality. Normal diastolic LV function. Right Ventricle: Normal size right ventricle. Normal RV function. Left Atrium: The left atrium is normal in size. Right Atrium: The right atrium is normal in size. Mitral Valve: The mitral valve is normal in appearance and function. Mild mitral valve regurgitation is present. No mitral stenosis is present. Aortic Valve: The aortic valve is tri-leaflet. There is no significant aortic valve regurgitation. No aortic valve stenosis is present. Tricuspid Valve: The tricuspid valve is normal in appearance and function. Mild tricuspid regurgitation is present. The pulmonary artery pressure is normal. Right ventricular systolic pressure measures 32mmHg. Pulmonic Valve: The pulmonic valve is normal in appearance and function. Mild pulmonic valve regurgitation is noted. Aorta: The aorta is normal. Normal size aortic root measuring 3.3 cm. Dilated ascending aorta measuring 4.4 cm. IVC: The IVC is normal sized. Pericardium: No pericardial effusion. (No Signature Object) Patient: CHINMAY MALONE Study Date: 03/11/2018 Page 2 of 2 08:44 AM [id number]
--- NOTE | 2018-03-11 15:19 | GDS ---
DISCHARGE DIAGNOSES: 1. Acute viral febrile illness. 2. History of recent West Nile encephalitis. 3. History of mantle cell lymphoma. 4. Nausea, vomiting. 5. Chronic obstructive pulmonary disease. 6. Orthostasis. 7. Gait instability. 8. Memory issues. CONSULTATIONS: 1. Neurology. 2. Cardiology. STUDIES AND PROCEDURES DONE: 1. CT of the head. 2. Echocardiogram. PHYSICAL EXAM: GENERAL: The patient is alert. VITAL SIGNS: Afebrile at 36.4, pulse is 83, respirato ry rate 16, blood pressure is 108/66, saturating 90% on room air. I have seen and evaluated the nina ent on the day of discharge. HOSPITAL COURSE: The patient is a 77-year-old male who presented to the emergency room with complain ts of nausea and vomiting and weakness. He was evaluated and diagnosed with: 1. Acute febrile illness. During this hospitalization this condition has resolved. It was felt jewell t this is secondary to a viral process with no further complications. 2. Recent West Nile encephalitis. He did receive a consultation from Neurology secondary to this re cent diagnosis. It is recommended that he have inpatient rehabilitation. 3. History of mantle cell lymphoma. This is stable with no further therapy at this time. 4. COPD. This is stable. 5. Orthostasis. The patient did receive a consultation from Cardiology during this hospitalization. It is noted on his echocardiogram that he has a dilated ascending aorta measuring 4.4 cm. He will f ollow up with this outside the hospital. His Flomax has been discontinued and he has received IV flu id hydration. His orthostasis is improved today and he can follow with Cardiology outside the hospit al. 6. Gait instability. This is multifactorial, will require further therapies. 7. Disposition: The patient will be discharged to inpatient rehab for further rehabilitation and man agement. DISCHARGE MEDICATIONS: Please refer to EMR form. The patient's Flomax has been discontinued as his blood pressure does not tolerate it. Followup will be with Dr. Mensah of Neurology as well as [facility] and his oncologist at [place]. TIME SPENT WITH PATIENT: I spent greater than 35 minutes in the care, coordination, and management o f this patient's disposition. /[id number]/MODL
--- NOTE | 2018-03-11 17:32 | ASDISCHSUM ---
Discharge Information Plan Status:Inpatient Rehab Medically Cleared to Leave: Discharge Date:03/11/2018 01:13 PM D/C Disposition:[facility] D/C Disposition:[facility] Projected Discharge Date:03/09/2018 11:00 AM Transportation at D/C:Family Discharge Delay Reason: Follow-Up Date:03/09/2018 11:00 AM Discharge Slot: Final Diagnosis: Placement Information Referral Type:*[facility]/SNF Referral ID:[id number] Provider Name: Address 1: Phone Number: Address 2: Fax Number: City: Selection Factors: State: Referral Type:Rehabilitation Hospital Referral ID:[id number] Provider Name:[facility] Address 1:[address] [place] [address] Phone Number: Address 2: Fax Number: [facility]:[place] Selection Factors: State:[place] Patient Contact Information Contact Name:HEMAADALIDNAVA Relationship: Address:[facility] [address] City:[place] Alternate Phone: State/Zip Code:[place] [address] Email: Financial Information Financial Class:Medicare Primary Plan Desc:MEDICARE INPATIENT Primary Plan Number:[id number] Secondary Plan Desc:NEHEMIAH GASTELUM [place] Secondary Plan Number:[id number] Assessment Information LACE LACE Length of stay for Answers: 3 days current admission Acuity / Level of Answers: Yes Care: Did the patient have an inpatient admission? Comorbidities - select Answers: Any tumor (including all that apply lymphoma or leukemia) Cerebrovascular disease (CVA, TIA, aneurysms, vasc ular dementia) Chronic pulmonary disease Coronary Artery Disease Other Notes: h/o west nile encephalitis, thrombocy top enia, hyperlipidemia # of Emergency department Answers: 3-4 visits in the last 6 months Score: 17 Date Signed: 03/11/2018 10:00 AM Electronically Signed By:Rena Olsen RN [facility] CM Progress Note CM Note CM Note Notes: 03/08/2018 Case Management Note Reviewed chart. Pt admitted for fever, N/V, general malaise. History of west nile encephalitis, lymphoma in remission since 2013, CAD, ascending aortic aneurysm, thrombocytopenia and hyperlipidemia. PT OT evals are pending. Pt is and living independently prior to admission. Case Management d/c poc: to be determined. Case Management to follow. Date Signed: 03/08/2018 09:16 AM Electronically Signed By:Yue Diego RN [facility] Progress Note CM Note CM Note Notes: CM met w/ pt and Dorothy for dispo planning. Dorothy does not feel comfortable taking pt back home at this time. Therapies have been ordered. Dorothy would like referrals made to [facility] and [facility]. Dorothy plans on going to tour [facility]. CM to follow. Plan: [facility] Date Signed: 03/09/2018 11:28 AM Electronically Signed By:CHAMP Almaguer [facility] Progress Note CM Note CM Note Notes: CM spoke to MIKO Krueger. Therapies are recommending inpatient rehab. Judith put in a rehab consult. CM spoke to Macey about the rehab consult. She will evaluate. CM to follow. Plan: Inpatient rehab vs SNF Date Signed: 03/09/2018 11:44 AM Electronically Signed By:CHAMP Almaguer [facility] Progress Note CM Note CM Note Notes: M[facility] has accepted pt into their inpatient rehab. CM spoke to Dorothy and noitifed her of the acceptance. Dorothy is concerned that pt will still be confused after the 2 weeks at inpatient rehab. Dorothy plans on speaking to her son before making a decision. CM to follow. Plan: SNF vs Inpatient rehab Date Signed: 03/09/2018 04:01 PM Electronically Signed By:CHAMP Almaguer Case Management Discharge Plan Note Case Management Discharge Discharge Order Complete? Answers: Yes Patient to Obtain Answers: Other Notes: Inpt Rehab Medications Transportation Arranged Answers: Family/Friends Transport will Pick (Date 03/11/2018 01:00 PM & Time) Case Management Transport Answers: No Form Complete Faxed Final Orders Answers: Yes Agency/Facility Transfer Answers: Yes Report Printed & Faxed to Receiving Agency Family Notified Answers: Yes Discharge Comments Notes: D/W DANCE COACH, met with pt and re; dc plan. P'ts Dorothy will transport pt over to Inpt Rehab, CM gave her phone # to call upon arrival. Offered list of out of pocket transportation services but they declined. Macey at rehab notified and would like pt to dc at 1pm, no stops. RN to call report. Date Signed: 03/11/2018 10:15 AM Electronically Signed By:Rena Olsen RN Intervention Information Intervention Type:*IM-Signed Date of Service:03/11/2018 12:09 PM Patient Type:Inpatient Staff Member:Valdo Pires Hours: Discipline: Severity: Comment:
== END 2018-03-11 13:13 | DRG 864 ==
LOC: EDUNIT# → F3E 18:27 → OBSVTOIN 03-08 15:53
PROVIDERS: ADMIT Internal Medicine; ATTEND Internal Medicine
DX: R50.9 Fever, unspecified (principal); B97.89 Other viral agents as the cause of diseases classified elsewhere; R11.2 Nausea with vomiting, unspecified; I95.1 Orthostatic hypotension; R26.89 Other abnormalities of gait and mobility; R29.6 Repeated falls; I71.4 Abdominal aortic aneurysm, without rupture; J44.9 Chronic obstructive pulmonary disease, unspecified; I25.10 Atherosclerotic heart disease of native coronary artery without angina pectoris; N40.0 Benign prostatic hyperplasia without lower urinary tract symptoms; Z87.891 Personal history of nicotine dependence; Z85.72 Personal history of non-Hodgkin lymphomas; Z66 Do not resuscitate
CPT/HCPCS: 84484-PO; 92507-GN; 92523-GN; 97116-GP; 97162-GP; 97166-GO; 97530-GO; 97530-GP; 97535-GO; G0378; G8978-GP-CK; G8979-GP-CI; G8987-GO-CK; G8988-GO-CJ; G9168-GN-CL; G9169-GN-CJ; J1650; J2405

== ENCOUNTER 2018-03-10 07:42 | Inpatient (IN) | payer OTHER ==
[2018-03-11] MEDS ORDERED: ACETAMINOPHEN 325 MG TAB PO PRN (14:18)
--- NOTE | 2018-03-11 15:54 | GHP ---
POST-ADMISSION PHYSICIAN EVALUATION AND REHABILITATION TREATMENT PLAN DATE OF ADMISSION: 03/11/2018 DATE OF EVALUATION: 03/11/2018 TIME OF EVALUATION: 1410 REFERRING FACILITY: [facility]. REFERRING PHYSICIAN: Judith Elkins NP CONSULTING PHYSICIANS: He was seen in consultation by neurologist, Dr. Mensah, and by efficiency analyst, Dr. Lovett. REHABILITATION DIAGNOSIS: Debility. IMPAIRMENT GROUP: 16. ETIOLOGIC DIAGNOSIS: Debility (non-cardiac, non-pulmonary). DATE OF ONSET: 03/07/2018 HISTORY OF PRESENT ILLNESS: This previously healthy man had West Nile virus encephalitis and meningitis and spent 10 days at the [facility]. He was discharged to [facility], where he spent 6 days, then he was able to discharge home. He did well initially, but then began falling. He developed a fever, malaise, nausea and vomiting, and significant decline in his functional status, and so he came to [facility]. There, he had studies including chest x- ray, EKG, head CT, and laboratory testing with no specific infectious or metabolic pathology identified. He had a neurology consultation, and the neurology air quality consultant assessed that his current symptoms were due to an unrelated virus and not to West Nile virus. He was recommended to have rehabilitation services. He was otherwise medically stable and appropriate for inpatient rehabilitation. Labs and studies during his stay: Chest x-ray showed hyper-expanded lungs consistent with possible COPD. He also had compression fractures in the mid- thoracic spine and at L1, which appeared to be old. He also had a right acromioclavicular separation. EKG showed normal sinus rhythm. Head CT showed no acute intracranial findings, but he had diffuse cerebral atrophy and periventricular and subcortical low attenuation consistent with chronic microvascular ischemic gliosis. During his hospital stay, he developed orthostatic hypotension. This followed diarrhea, which may have been due to laxatives in the treatment of constipation. An echocardiogram was obtained along with a cardiology consultation. The echocardiogram showed overall normal cardiac function. There was mild mitral valve regurgitation and mild tricuspid valve regurgitation. documentation consultant assessed him as having coronary artery disease with history of an elevated coronary artery calcium score and an abnormal stress echocardiogram in 2009. He has an ascending aortic aneurysm of 4.5 cm. He was treated with IV fluids for the orthostatic hypotension, and tamsulosin was discontinued. He denies feeling symptomatic with lightheadedness with standing. PRECAUTIONS: He is a fall risk. ACTIVE COMORBIDITIES: He has no active tier 1, tier 2 or tier 3 comorbidities. PAST MEDICAL HISTORY: 1. Lymphoma, diagnosed 6 months ago. 2. Ascending aortic aneurysm of 4.5 cm. 3. BPH. 4. Thrombocytopenia. 5. COPD. 6. West Nile virus encephalopathy. MEDICATIONS PRIOR TO HOSPITALIZATION: Only tamsulosin 0.4 mg at bedtime. ADMISSION MEDICATIONS: 1. Acetaminophen 650 mg p.o. q.6 hours p.r.n. 2. Melatonin 3 mg p.o. at bedtime. ALLERGIES: There are no known drug allergies. 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 He lives with his . He drinks 2 glasses of wine every evening. He smokes occasional marijuana. He has a history of tobacco smoking, but is not currently a smoker. 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 FAMILY HISTORY: Noncontributory. REVIEW OF SYSTEMS: He feels nauseous, and he thinks it is because his brought him a latte. He reports he generally has a latte in the morning and tolerates it well, but in the afternoon he feels he did not tolerate it as well today. He had diarrhea after laxative treatments, and this has resolved. He is not in pain. He feels globally weak but is not weak any specific place. He does not have a headache. He does not have vision changes. He denies cough or dyspnea. He denies chest pain or palpitations. He reports that he used to have urinary frequency and nocturia 2 times at night, and this resolved after initiating tamsulosin. He denies having felt lightheaded with standing, though he was markedly orthostatic in the hospital. Otherwise, a 10-point review of systems is negative. PHYSICAL EXAMINATION: VITAL SIGNS: Not yet available in the chart. This morning in the hospital, blood pressure was 113/64, heart rate was 76, respiratory rate was 18, oxygen saturation was 94% on room air, temperature was 36.4 degrees centigrade. He was close to orthostatic by heart rate, with standing heart rate at 95 compared to 76 supine. He was not orthostatic by blood pressure. Previously during his stay, he was orthostatic by blood pressure with a seated blood pressure of 102/55 and a standing blood pressure of 82/55. Subsequently, he received IV fluids. GENERAL: This is a well- nourished, well-developed man, appears fatigued, lying in the bed with the head of the bed elevated and listing to the left. Cooperative and in no acute distress. HEENT: Extraocular movements are intact. Pupils are equal, round, and reactive to light. Mucous membranes are moist. Dentition is in good condition. He has an uncrowded airway, Mallampati class II. NECK: Supple. HEART: There is a regular rate and rhythm with no murmurs, rubs, or gallops. LUNGS: Clear to auscultation bilaterally. ABDOMEN: Soft, nontender, and nondistended with normoactive bowel sounds and no hepatosplenomegaly. EXTREMITIES: There is no cyanosis, clubbing, or edema. Radial pulses are 2+ bilaterally. Pedal pulses are diminished. NEUROLOGIC: He is alert and oriented x3. Cranial nerves 2 through 12 are grossly intact. He has somewhat slow processing. He is hard of hearing. There is no focal weakness. Sensation is intact to light touch. Deep tendon reflexes are 2+ bilaterally at the biceps and patella and hypoactive at the Achilles tendons. CURRENT LEVEL OF FUNCTION: Per the pre-admission screen. Regarding diet, feeding, and swallowing, he was on a regular diet. Grooming required contact guard to minimal assist. Bathing required minimal assist with voice cues in standing for a sponge bath. Dressing, upper body required standby assist and lower body required minimal assist and voice cues. He was continent of bowel and bladder. Bed mobility required standby assist to minimal assist. Transfers required contact guard assist with voice cues. He used a front- wheeled walker. Balance required contact guard to minimal assist. His endurance was fair. He was able to ambulate 50 feet with minimal assist and voice cues and no device and 200 feet with a front-wheeled walker and minimal assist. Communication deficit was considered to be moderate to severe, and cognitive deficit was considered to be moderate to severe in executive function , safety, judgment, and attention. On today's exam, there are no significant changes from the pre-admission screen. IMPRESSION: This is a 77-year-old man who was previously healthy. He contracted West Nile virus with encephalitis and meningitis. He spent 10 days at [facility] in [place] and then was discharged to a local care home. He stayed there for 6 days and then returned home. He was initially doing well, but then began to have more debility and falls and ultimately developed a fever, nausea, vomiting, diarrhea, and increased debility. So, he was brought to [facility]. There, other infectious or metabolic etiologies of his decline were ruled out. He recovered from his symptoms of acute viral illness. His stay was complicated by constipation and then diarrhea following use of laxatives, orthostatic hypotension, for which he needed intravenous fluids and for which Flomax was discontinued. He was otherwise medically stable and appropriate for inpatient rehabilitation. His goal is to complete a rehabilitation stay and then return home with his and supportive services. For a safe discharge, he will need to achieve independence with grooming, bed mobility, toileting, and dressing. He may continue to require supervision for bathing for safety. He will need to achieve modified independence for transfers and ambulation with the least restrictive device on level and unlevel surfaces. He will need to have awareness into his cognitive limitations and use compensatory strategies appropriately. He will likely require assistance for household management, shopping, and meal preparation. He will have therapy with Physical Therapy, Occupational Therapy, and Speech and Language Pathology for 60 minutes per day on 5 to 7 days of the week. His expected duration of stay is 10 to 14 days. It is anticipated that after discharge he will continue to continue to benefit from outpatient speech and language pathology. PLAN: 1. Debility following acute viral gastrointestinal illness with recent West Nile virus encephalitis/meningitis. PT and OT to optimize mobility and activities of daily living. Given his age and the severity of his illness, it is likely he will continue to have some debility going forward. We will monitor his progress in therapies. 2. Cognitive effects of encephalopathy. Assessment and treatment per Speech and Language Pathology. 3. Orthostatic hypotension. Will monitor for symptoms. If he is symptomatic, we will check his orthostatics again and consider fluid resuscitation if he needs it. He will have progressive training for orthostatic tolerance with Occupational Therapy and Physical Therapy. 4. Benign prostatic hypertrophy, with discontinuation of tamsulosin due to orthostatic hypotension. He will have a bladder scan to determine a postvoid residual, and he will be observed for symptoms. If he is symptomatic and is not orthostatic, we will reinstate tamsulosin. 5. Hyponatremia of unclear etiology on labs in the hospital. Recheck BMP in the morning. 6. Anemia. It was improving during his hospitalization. His most recent hemoglobin and hematocrit were 11.3 and 32.8 yesterday. Two days previously, on 03/08/2018, they were 10.9 and 31.4. Given that he is improving, there is no indication to continue monitoring. 7. Right acromioclavicular separation of unclear age. He does not complain of any pain, and he will be observed for any limitation in his upper extremity function. 8. Ascending aortic aneurysm. He will need followup after discharge. On echocardiogram, it was 4.4 cm, and he should have followup approximately every 6 months. It was stable compared to prior measurement of 4.5 cm. 9. Compression fractures of unclear age. Unclear whether they may be related to his recent falls. He is not symptomatic. Will check a vitamin D level, and he can have followup after his discharge regarding possible osteoporosis. 10. Prophylaxis. He has ambulated as far as 200 feet. He is not hemiplegic. If he continues to have improvement in his mobility, there will be no need for pharmacologic anticoagulation. He will have SCDs at night. 11. Likely coronary artery disease. He will follow up with Cardiology after his discharge. /[id number]/MODL MTDD
[2018-03-11] MEDS: MELATONIN 3 MG TAB PO SCH (20:42)
--- NOTE | 2018-03-12 13:39 | SOAPPROG ---
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 PT and OT to optimize mobility and activities of daily living. Given his age and the severity of his illness, it is likely he will continue to have some debility going forward. We will monitor his progress in therapies. Cognitive effects of encephalopathy. Assessment and treatment per Speech and Language Pathology. Orthostatic hypotension. Will monitor for symptoms. If he is symptomatic, we will check his orthostatics again and consider fluid resuscitation if he needs it. He will have progressive training for orthostatic tolerance with Occupational Therapy and Physical Therapy. Benign prostatic hypertrophy, with discontinuation of tamsulosin due to orthostatic hypotension. * Postvoid residual 182 on 03/12/2018. Hyponatremia. * Sodium 131 on labs 03/12/2018. Check osmolality serum and urine, serum uric acid, and urine sodium, to evaluate for SIADH. Anemia. It was improving during his hospitalization. His most recent hemoglobin and hematocrit were 11.3 and 32.8 on 03/10/2018. Right acromioclavicular separation of unclear age. He does not complain of any pain, and he will be observed for any limitation in his upper extremity function. Ascending aortic aneurysm. He will need followup after discharge. On echocardiogram, it was 4.4 cm, and he should have followup approximately every 6 months. It was stable compared to prior measurement of 4.5 cm. Compression fractures of unclear age. Unclear whether they may be related to his recent falls. He is not symptomatic. * Normal vitamin-D level on 03/12/2018. Prophylaxis. He has ambulated as far as 200 feet. He is not hemiplegic. If he continues to have improvement in his mobility, there will be no need for pharmacologic anticoagulation. He will have SCDs at night. Likely coronary artery disease. He will follow up with Cardiology after his discharge. 03/12/18 15:12 Subjective: No complaints. Thinks he slept well. Not in pain. Reports he has had a busy day with multiple therapies and he feels fatigued. Reports that he needs to urinate. Objective: Vital Signs Temp Pulse Resp BP Pulse Ox 36.8 C 69 17 135/83 H 94 03/12/18 05:56 03/12/18 05:56 03/12/18 05:56 03/12/18 05:56 03/12/18 05:56 Laboratory Results 03/12/18 06:00 03/11/18 03/12/18 03/13/18 05:59 05:59 05:59 Intake Total 300 Output Total 1200 500 Balance -900 -500 Physical Exam - Physical Exam General Appearance: WD/WN, alert, no apparent distress Respiratory: No respiratory distress, No accessory muscle use Cardiac/Chest: regular rate, rhythm, No edema, No diastolic murmur, No systolic murmur Abdomen: normal bowel sounds, non-tender, soft, other (No palpable bladder), No distended Skin: normal color, warm/dry Neuro/Psych: alert, normal mood/affect, cognition abnormalities (Very concrete and seems unaware that he needs to call the nurse for assistance to go to the bathroom.) ICD10 Worksheet Patient Problems: Problems Problem Status Onset Fever Acute Malaise Acute
[2018-03-12] MEDS: DHA PO SCH (19:45)
[2018-03-12] MEDS: LACTOBACILLUS ACIDOPHILUS PO SCH (19:45)
[2018-03-12] MEDS: RESVERATROL 100 MG PO SCH (19:46)
[2018-03-12] MEDS: MENS MULTIVITAMIN PO SCH (19:46)
[2018-03-12] MEDS: MELATONIN 3 MG TAB PO SCH (20:00)
[2018-03-13] MEDS: MENS MULTIVITAMIN PO SCH (09:08)
[2018-03-13] MEDS: LACTOBACILLUS ACIDOPHILUS PO SCH (09:08)
[2018-03-13] MEDS: RESVERATROL 100 MG PO SCH (09:08)
[2018-03-13] MEDS: DHA PO SCH (09:09)
--- NOTE | 2018-03-13 09:42 | SOAPPROG ---
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 PT and OT to optimize mobility and activities of daily living. Given his age and the severity of his illness, it is likely he will continue to have some debility going forward. We will monitor his progress in therapies. Cognitive effects of encephalopathy. * MOCA score of 16/30 on 03/12/2018 is significantly below passing score. Areas of deficit are apparent in memory, attention, executive functions, math, and problem solving. * Continue Speech and Language Pathology. Orthostatic hypotension. Will monitor for symptoms. If he is symptomatic, we will check his orthostatics again and consider fluid resuscitation if he needs it. He will have progressive training for orthostatic tolerance with Occupational Therapy and Physical Therapy. Benign prostatic hypertrophy, with discontinuation of tamsulosin due to orthostatic hypotension. * Postvoid residual 182 on 03/12/2018. Hyponatremia. * Sodium 131 on labs 03/12/2018. 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 Initiated fluid restriction of 1200 cc per day though his recorded intake has not been greater than this so far during his rehabilitation stay. Repeat BMP on 03/14/2018. He may need a structure fluid restriction. Constipation. Initiated polyethylene glycol scheduled q.day on 03/13/2018. Also ordered senna twice daily p.r.n. Anemia. It was improving during his hospitalization. His most recent hemoglobin and hematocrit were 11.3 and 32.8 on 03/10/2018. Right acromioclavicular separation of unclear age. He does not complain of any pain, and he will be observed for any limitation in his upper extremity function. Ascending aortic aneurysm. He will need followup after discharge. On echocardiogram, it was 4.4 cm, and he should have followup approximately every 6 months. It was stable compared to prior measurement of 4.5 cm. Compression fractures of unclear age. Unclear whether they may be related to his recent falls. He is not symptomatic. * Normal vitamin-D level on 03/12/2018. Prophylaxis. He has ambulated as far as 200 feet. He is not hemiplegic. If he continues to have improvement in his mobility, there will be no need for pharmacologic anticoagulation. He will have SCDs at night. Likely coronary artery disease. He will follow up with Cardiology after his discharge. 03/13/18 09:39 03/13/18 09:44 Subjective: No complaints. Slept well. Not in pain. Good appetite. Objective: Vital Signs Temp Pulse Resp BP Pulse Ox 36.8 C 76 15 130/78 H 92 03/13/18 05:44 03/13/18 05:44 03/13/18 05:44 03/13/18 05:44 03/13/18 05:44 Laboratory Results 03/12/18 06:00 03/12/18 03/13/18 03/14/18 05:59 05:59 05:59 Intake Total 300 100 150 Output Total 1200 1050 300 Balance -900 -950 -150 Physical Exam - Physical Exam General Appearance: WD/WN, alert, no apparent distress Respiratory: No respiratory distress, No accessory muscle use ICD10 Worksheet Patient Problems: Problems Problem Status Onset Fever Acute Malaise Acute
[2018-03-13] MEDS ORDERED: SENNOSIDES 1 TAB PO PRN (09:43)
[2018-03-13] MEDS: POLYETHYLENE GLYCOL 3350 17 GM PKT PO SCH (11:48)
[2018-03-13] MEDS ORDERED: PNEUMOC 13-VAL CONJ-DIP CRM/PF 0.5 ML SYR (PREVNAR 13) IM ONE (12:28)
--- NOTE | 2018-03-13 13:18 | PDOREHIP ---
Admission [facility] - Admission - 3 Day Assessment Period Admission Date/Day 1: 03/11/18 Day 2: 03/12/18 Day 3: 03/13/18 - Active Diagnoses Comorbidities and Co-existing Conditions at Admission: 55017. None of the Above - Skin Conditions Unhealed Pressure Ulcer (1 or more/Stage 1 or >)-Admission: 0. No # Stage 1 Pressure Ulcers-Admission: 0 # Stage 2 Pressure Ulcers-Admission: 0 # Stage 3 Pressure Ulcers-Admission: 0 # Stage 4 Pressure Ulcers-Admission: 0 # Unstageable Pressure Ulcers (Non-remove Dress)-Admission: 0 # Unstageable Pressure Ulcers (Slough/Eschar)-Admission: 0 # Unstageable Pressure Ulcers (Deep Tissue Injury)-Admission: 0
[2018-03-14] MEDS: MELATONIN 3 MG TAB PO SCH ×2 (04:28→23:47)
--- NOTE | 2018-03-14 09:27 | SOAPPROG ---
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 PT and OT to optimize mobility and activities of daily living. Given his age and the severity of his illness, it is likely he will continue to have some debility going forward. We will monitor his progress in therapies. Cognitive effects of encephalopathy. * MOCA score of 16/30 on 03/12/2018 is significantly below passing score. Areas of deficit are apparent in memory, attention, executive functions, math, and problem solving. * Continue Speech and Language Pathology. Orthostatic hypotension. BLOOD PRESSURE ON 03/14/18 115/72. Will monitor for symptoms. If he is symptomatic, we will check his orthostatics again and consider fluid resuscitation if he needs it. He will have progressive training for orthostatic tolerance with Occupational Therapy and Physical Therapy. WILL REMIND NURSING TO CHECK ORTHOSTATICS TODAY. BE Benign prostatic hypertrophy, with discontinuation of tamsulosin due to orthostatic hypotension. * Postvoid residual 182 on 03/12/2018. Hyponatremia. * Sodium 133 ON 03/14/2018. WILL CONTINUE TO MONITOR. WITH SODIUM CLOSE TO NORMAL DOUBT THAT FLUID RESTRICTION REQUIRED AT THIS TIME. 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 Initiated fluid restriction of 1200 cc per day though his recorded intake has not been greater than this so far during his rehabilitation stay. Constipation. Initiated polyethylene glycol scheduled q.day on 03/13/2018. Also ordered senna twice daily p.r.n. Anemia. It was improving during his hospitalization. His most recent hemoglobin and hematocrit were 11.3 and 32.8 on 03/10/2018. Right acromioclavicular separation of unclear age. He does not complain of any pain, and he will be observed for any limitation in his upper extremity function. Ascending aortic aneurysm. He will need followup after discharge. On echocardiogram, it was 4.4 cm, and he should have followup approximately every 6 months. It was stable compared to prior measurement of 4.5 cm. Compression fractures of unclear age. Unclear whether they may be related to his recent falls. He is not symptomatic. * Normal vitamin-D level on 03/12/2018. Prophylaxis. He has ambulated as far as 200 feet. He is not hemiplegic. If he continues to have improvement in his mobility, there will be no need for pharmacologic anticoagulation. He will have SCDs at night. Likely coronary artery disease. He will follow up with Cardiology after his discharge. Plan: 03/14/18 09:22 03/14/18 09:47 Subjective: NO COMPLAINTS THIS MORNING PER PATIENT OR THERAPY STAFF. Objective: Vital Signs Temp Pulse Resp BP Pulse Ox 36.4 C 78 18 115/72 96 03/14/18 07:25 03/14/18 07:25 03/14/18 07:25 03/14/18 07:25 03/14/18 07:25 Laboratory Results 03/14/18 06:15 03/13/18 03/14/18 03/15/18 05:59 05:59 05:59 Intake Total 100 590 Output Total 1050 800 Balance -950 -210 ICD10 Worksheet Patient Problems: Problems Problem Status Onset Fever Acute Malaise Acute
[2018-03-14] MEDS: DHA PO SCH (09:58)
[2018-03-14] MEDS: POLYETHYLENE GLYCOL 3350 17 GM PKT PO SCH ×2 (09:59→16:16)
[2018-03-14] MEDS: MENS MULTIVITAMIN PO SCH (09:59)
[2018-03-14] MEDS: RESVERATROL 100 MG PO SCH (09:59)
[2018-03-14] MEDS: LACTOBACILLUS ACIDOPHILUS PO SCH (09:59)
[2018-03-14] MEDS ORDERED: BISACODYL 10 MG SUPP PR PRN (14:32)
[2018-03-15] MEDS: POLYETHYLENE GLYCOL 3350 17 GM PKT PO SCH (10:20)
[2018-03-15] MEDS: RESVERATROL 100 MG PO SCH (10:20)
[2018-03-15] MEDS: LACTOBACILLUS ACIDOPHILUS PO SCH (10:21)
[2018-03-15] MEDS: MENS MULTIVITAMIN PO SCH (10:21)
[2018-03-15] MEDS: DHA PO SCH (10:22)
--- NOTE | 2018-03-15 10:29 | SOAPPROG ---
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 PT and OT to optimize mobility and activities of daily living. Given his age and the severity of his illness, it is likely he will continue to have some debility going forward. We will monitor his progress in therapies. Cognitive effects of encephalopathy. * MOCA score of 16/30 on 03/12/2018 is significantly below passing score. Areas of deficit are apparent in memory, attention, executive functions, math, and problem solving. * Continue Speech and Language Pathology. * WILL CHECK UA TO RULE OUT UTI GIVEN PATIENT'S COGNITIVE STATUS Orthostatic hypotension. BLOOD PRESSURE ON 03/15/18 109/51 Will monitor for symptoms. NO REPORTS OF ORTHOSTASIS PER NURSING OR THERAPY STAFF. If he is symptomatic, we will check his orthostatics again and consider fluid resuscitation if he needs it. He will have progressive training for orthostatic tolerance with Occupational Therapy and Physical Therapy. Benign prostatic hypertrophy, with discontinuation of tamsulosin due to orthostatic hypotension. * Postvoid residual 182 on 03/12/2018. Hyponatremia. * Sodium 133 ON 03/14/2018. WILL CONTINUE TO MONITOR. PATIENT REMAINS ON FLUID RESTRICTION OF 1200 ML DAILY. 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 Initiated fluid restriction of 1200 cc per day though his recorded intake has not been greater than this so far during his rehabilitation stay. Constipation. Initiated polyethylene glycol scheduled q.day on 03/13/2018. Also ordered senna twice daily p.r.n. Anemia. It was improving during his hospitalization. His most recent hemoglobin and hematocrit were 11.3 and 32.8 on 03/10/2018. Right acromioclavicular separation of unclear age. He does not complain of any pain, and he will be observed for any limitation in his upper extremity function. Ascending aortic aneurysm. He will need followup after discharge. On echocardiogram, it was 4.4 cm, and he should have followup approximately every 6 months. It was stable compared to prior measurement of 4.5 cm. Compression fractures of unclear age. Unclear whether they may be related to his recent falls. He is not symptomatic. * Normal vitamin-D level on 03/12/2018. Prophylaxis. He has ambulated as far as 200 feet. He is not hemiplegic. If he continues to have improvement in his mobility, there will be no need for pharmacologic anticoagulation. He will have SCDs at night. Likely coronary artery disease. He will follow up with Cardiology after his discharge. Plan: 03/14/18 09:22 03/14/18 09:47 03/15/18 10:26 Subjective: NO COMPLAINTS FROM PATIENT OR PER NURSING STAFF. Objective: Vital Signs Temp Pulse Resp BP Pulse Ox 36.6 C 88 18 109/51 L 97 03/14/18 18:42 03/14/18 18:42 03/14/18 18:42 03/14/18 18:42 03/14/18 18:42 Laboratory Results 03/14/18 06:15 03/14/18 03/15/18 03/16/18 05:59 05:59 05:59 Intake Total 590 840 Output Total 800 600 Balance -210 240 Physical Exam - Physical Exam General Appearance: WD/WN, alert, no apparent distress Respiratory: lungs clear, normal breath sounds Cardiac/Chest: regular rate, rhythm, No edema Abdomen: normal bowel sounds, non-tender, No distended, No guarding Skin: normal color, warm/dry Neuro/Psych: cognition abnormalities ICD10 Worksheet Patient Problems: Problems Problem Status Onset Fever Acute Malaise Acute
[2018-03-15] MEDS: MELATONIN 3 MG TAB PO SCH (20:22)
[2018-03-16] MEDS: RESVERATROL 100 MG PO SCH (07:17)
[2018-03-16] MEDS: POLYETHYLENE GLYCOL 3350 17 GM PKT PO SCH (07:17)
[2018-03-16] MEDS: DHA PO SCH (07:18)
[2018-03-16] MEDS: MENS MULTIVITAMIN PO SCH (07:18)
[2018-03-16] MEDS: LACTOBACILLUS ACIDOPHILUS PO SCH (07:18)
--- NOTE | 2018-03-16 11:26 | SOAPPROG ---
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 * Initial functional independence measure is 80 on 03/16/2018. Standby assist to contact guard assist for bed mobility. Contact guard assist for sit to stand with a front wheeled walker; occasionally retro pulse of. Ambulated 100 ft standby assist to contact guard assist with a front wheeled walker. Climbed and descended 12 stairs with 1 rail contact guard assist. Needs steadying assist for upper body and lower body dressing. Grooming and hygiene are done with modified assistance seated and with more assistance when standing. * Continue PT and OT to optimize mobility and activities of daily living. Given his age and the severity of his illness, it is likely he will continue to have some debility going forward. Cognitive effects of encephalopathy. * Scored 16/30 on the [place] cognitive assessment, significantly impaired. Has decreased executive function, recall, and mathematics X/calculation skills. Does well with orientation language and naming. Decreased speed of processing. * Continue Speech and Language Pathology. Fatigue. Will benefit from endurance training. Also needs adequate rest during the day between therapy sessions. Orthostatic hypotension. Not symptomatic. Benign prostatic hypertrophy, with discontinuation of tamsulosin due to orthostatic hypotension. * Postvoid residual 182 on 03/12/2018. Hyponatremia. * Sodium 131 on labs 03/12/2018. Consistent with SIADH. Initiated 1200 cc fluid restriction on 03/13/2018, but he has been consistently consuming less than 1200 cc. * Sodium improved to 133 on 03/14/2018. This is likely a chronic issue and did not respond to fluid restriction as he was already taking less than 1200 cc. Will discontinue fluid restriction starting 03/16/2018. Anemia. It was improving during his hospitalization. His most recent hemoglobin and hematocrit were 11.3 and 32.8 on 03/10/2018. Right acromioclavicular separation of unclear age. He does not complain of any pain, and he will be observed for any limitation in his upper extremity function. Ascending aortic aneurysm. He will need followup after discharge. On echocardiogram, it was 4.4 cm, and he should have followup approximately every 6 months. It was stable compared to prior measurement of 4.5 cm. Compression fractures of unclear age. Unclear whether they may be related to his recent falls. He is not symptomatic. * Normal vitamin-D level on 03/12/2018. Prophylaxis. He has ambulated as far as 200 feet. He is not hemiplegic. If he continues to have improvement in his mobility, there will be no need for pharmacologic anticoagulation. He will have SCDs at night. Likely coronary artery disease. He will follow up with Cardiology after his discharge. DISPOSITION: Attended staffing, 15 min. Discussed with case management, dietitian, nursing, PT, OT, [employer]. Lives with his . She is unlikely to provide significant physical assist for mobility so he needs a high level of independence to return home. Expect stay of approximately 2 weeks or longer. Tentative discharge date set for 04/01/2018. 03/16/18 11:26 Subjective: Complains of feeling bored. Otherwise doing well. Sleeping well, not in pain. Nurses report considerable fatigue in the evening with decreased cognition and decreased level of function. Objective: Vital Signs Temp Pulse Resp BP Pulse Ox 36.8 C 81 16 121/82 H 95 03/16/18 05:44 03/16/18 05:44 03/16/18 05:44 03/16/18 05:44 03/16/18 05:44 Laboratory Results 03/14/18 06:15 03/15/18 03/16/18 03/17/18 05:59 05:59 05:59 Intake Total 840 780 Output Total 600 1300 Balance 240 -520 - Time Spent With Patient Time Spent With Patient: Greater than 35 min floor time today, including more than 50% of time in coordination of care during staffing, and counseling patient and . Physical Exam - Physical Exam General Appearance: WD/WN, alert, no apparent distress Respiratory: No respiratory distress, No accessory muscle use Skin: normal color, warm/dry Neuro/Psych: alert, normal mood/affect, oriented x 3, abnormal gait (Narrow based, slightly ataxic, with front wheeled walker. Has a tendency to deviate from his path to the right.) ICD10 Worksheet Patient Problems: Problems Problem Status Onset Fever Acute Malaise Acute
[2018-03-16] MEDS: MELATONIN 3 MG TAB PO SCH (19:25)
--- NOTE | 2018-03-17 08:19 | SOAPPROG ---
SOAP Progress Note Assessment/Plan: 77-year-old male status post West Nile virus encephalitis in January, status post intermediate facility and discharge home with new weakness and falls in the setting of a separate viral enteritis, impairments in mobility and self-care Today's update: Doing well from a medical standpoint, endorses that he is tired in the evening but sleeps well with some early awakening but no change to the plan today. Making slow but steady rehabilitation progress per reports, discussed rehab plan with patient Total of 15 min was spent on the floor in the care of the patient, the majority of which was spent in counseling coordination of care regarding rehab progress Additional issues reviewed without change today include orthostatic hypotension , benign prostatic hypertrophy, hyponatremia, anemia, AC joint separation, ascending aortic aneurysm, compression fractures, prophylaxis, possible coronary artery disease. 03/17/18 08:17 03/17/18 09:23 Subjective: Chief complaint: Fatigue No acute events overnight. Patient denies any new shortness of breath or chest pain, no new numbness, tingling, or weakness. He states that at the end of the day he is a bit fatigued from therapies but otherwise no issues. He feels like he sleeps well at night and wakes up early in the morning and he feels that is a result of going to bed early. He feels that his rehab progress it is going just fine although somewhat slowly, no barriers from his perspective regarding his progress. Objective: Vital Signs Temp Pulse Resp BP Pulse Ox 36.7 C 79 16 138/94 H 95 03/17/18 06:16 03/17/18 06:16 03/17/18 06:16 03/17/18 06:16 03/17/18 06:16 Laboratory Results 03/14/18 06:15 03/16/18 03/17/18 03/18/18 05:59 05:59 05:59 Intake Total 780 960 Output Total 1300 2200 300 Balance -520 -1240 -300 Physical Exam - Physical Exam General Appearance: WD/WN, alert, no apparent distress, thin EENT: No scleral icterus (R), No scleral icterus (L) Respiratory: No respiratory distress, No accessory muscle use Cardiac/Chest: normal peripheral pulses, regular rate, rhythm, No edema Skin: normal color, warm/dry, No cyanosis, No diaphoresis Neuro/Psych: alert, normal mood/affect (Slow movements and speech.) ICD10 Worksheet Patient Problems: Problems Problem Status Onset Fever Acute Malaise Acute
[2018-03-17] MEDS: DHA PO SCH (09:03)
[2018-03-17] MEDS: MENS MULTIVITAMIN PO SCH (09:03)
[2018-03-17] MEDS: LACTOBACILLUS ACIDOPHILUS PO SCH (09:03)
[2018-03-17] MEDS: RESVERATROL 100 MG PO SCH (09:03)
[2018-03-17] MEDS: POLYETHYLENE GLYCOL 3350 17 GM PKT PO SCH (09:05)
[2018-03-17] MEDS: MELATONIN 3 MG TAB PO SCH (20:13)
[2018-03-18] MEDS: LACTOBACILLUS ACIDOPHILUS PO SCH (10:09)
[2018-03-18] MEDS: RESVERATROL 100 MG PO SCH (10:10)
[2018-03-18] MEDS: MENS MULTIVITAMIN PO SCH (10:11)
[2018-03-18] MEDS: DHA PO SCH (10:11)
[2018-03-18] MEDS: POLYETHYLENE GLYCOL 3350 17 GM PKT PO SCH (10:12)
--- NOTE | 2018-03-18 12:27 | SOAPPROG ---
SOAP Progress Note Assessment/Plan: Debility following acute viral gastrointestinal illness with recent West Nile virus encephalitis/meningitis. * Initial functional independence measure is 80 on 03/16/2018. Standby assist to contact guard assist for bed mobility. Contact guard assist for sit to stand with a front wheeled walker; occasionally retro pulse of. Ambulated 100 ft standby assist to contact guard assist with a front wheeled walker. Climbed and descended 12 stairs with 1 rail contact guard assist. Needs steadying assist for upper body and lower body dressing. Grooming and hygiene are done with modified assistance seated and with more assistance when standing. * Continue PT and OT to optimize mobility and activities of daily living. Given his age and the severity of his illness, it is likely he will continue to have some debility going forward. Cognitive effects of encephalopathy. * Scored 16/30 on the [place] cognitive assessment, significantly impaired. Has decreased executive function, recall, and mathematics X/calculation skills. Does well with orientation language and naming. Decreased speed of processing. * Continue Speech and Language Pathology. Fatigue. Will benefit from endurance training. Also needs adequate rest during the day between therapy sessions. Orthostatic hypotension. Not symptomatic. BLOOD PRESSURE ON 03/19 121/75 Benign prostatic hypertrophy, with discontinuation of tamsulosin due to orthostatic hypotension. * Postvoid residual 182 on 03/12/2018. Hyponatremia. * Sodium 131 on labs 03/12/2018. Consistent with SIADH. Initiated 1200 cc fluid restriction on 03/13/2018, but he has been consistently consuming less than 1200 cc. * Sodium improved to 133 on 03/14/2018. This is likely a chronic issue and did not respond to fluid restriction as he was already taking less than 1200 cc. Will discontinue fluid restriction starting 03/16/2018. Anemia. It was improving during his hospitalization. His most recent hemoglobin and hematocrit were 11.3 and 32.8 on 03/10/2018. Right acromioclavicular separation of unclear age. He does not complain of any pain, and he will be observed for any limitation in his upper extremity function. Ascending aortic aneurysm. He will need followup after discharge. On echocardiogram, it was 4.4 cm, and he should have followup approximately every 6 months. It was stable compared to prior measurement of 4.5 cm. Compression fractures of unclear age. Unclear whether they may be related to his recent falls. He is not symptomatic. * Normal vitamin-D level on 03/12/2018. Prophylaxis. He has ambulated as far as 200 feet. He is not hemiplegic. If he continues to have improvement in his mobility, there will be no need for pharmacologic anticoagulation. He will have SCDs at night. Likely coronary artery disease. He will follow up with Cardiology after his discharge. DISPOSITION: Attended staffing, 15 min. Discussed with case management, dietitian, nursing, PT, OT, SENIOR MEDICAL WRITER. Lives with his . She is unlikely to provide significant physical assist for mobility so he needs a high level of independence to return home. Expect stay of approximately 2 weeks or longer. Tentative discharge date set for 04/01/2018. 03/18/18 12:24 03/18/18 12:26 Subjective: NO COMPLAINTS PER PATIENT. NO PROBLEMS REPORTED BY REHAB THERAPY STAFF. Objective: Vital Signs Temp Pulse Resp BP Pulse Ox 36.6 C 76 14 121/75 H 93 03/18/18 05:54 03/18/18 05:54 03/18/18 05:54 03/18/18 05:54 03/18/18 05:54 Laboratory Results 03/14/18 06:15 03/17/18 03/18/18 03/19/18 05:59 05:59 05:59 Intake Total 960 1080 360 Output Total 2300 900 625 Balance -1340 180 -265 Physical Exam - Physical Exam General Appearance: WD/WN, alert, no apparent distress Respiratory: lungs clear, normal breath sounds Abdomen: non-tender, soft Extremities: No swelling, No George's sign Neuro/Psych: alert, motor weakness (BETTER THAN ANTIGRAVITY STRENGTH PROXIMAL AND DISTAL MUSCLE GROUPS BOTH UPPER AND LOWER EXTREMITIES.), other (FOLLOWS COMMANDS) ICD10 Worksheet Patient Problems: Problems Problem Status Onset Fever Acute Malaise Acute
[2018-03-18] MEDS: MELATONIN 3 MG TAB PO SCH (20:44)
[2018-03-19] MEDS: POLYETHYLENE GLYCOL 3350 17 GM PKT PO SCH (07:46)
[2018-03-19] MEDS: DHA PO SCH (07:46)
[2018-03-19] MEDS: MENS MULTIVITAMIN PO SCH (07:47)
[2018-03-19] MEDS: LACTOBACILLUS ACIDOPHILUS PO SCH (07:48)
[2018-03-19] MEDS: RESVERATROL 100 MG PO SCH (07:49)
--- NOTE | 2018-03-19 08:43 | SOAPPROG ---
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 Also doing well from a medical standpoint. Orthostasis has not been an issue, continue present management. Continues to work with therapies. We will do a spot recheck of his electrolytes given his history of hyponatremia and discontinuation of fluid restrictions. Total of 15 min was spent on the floor in the care of the patient, the majority of which was spent in counseling coordination of care regarding rehab progress Additional issues reviewed without change today include benign prostatic hypertrophy, hyponatremia, anemia, AC joint separation, ascending aortic aneurysm, compression fractures, prophylaxis, possible coronary artery disease. 03/17/18 08:17 03/17/18 09:23 03/19/18 08:39 Subjective: Chief complaint: Rehab progress, history of hyponatremia No acute events overnight. Patient endorses he is making continued slow gains. Denies any new shortness of breath or chest pain, no new numbness, tingling, or weakness. He feels like things are going well and does not have any acute concerns today. Denies any confusion. Objective: Vital Signs Temp Pulse Resp BP Pulse Ox 36.7 C 82 16 119/72 94 03/19/18 06:48 03/19/18 06:48 03/19/18 06:48 03/19/18 06:48 03/19/18 06:48 Laboratory Results 03/14/18 06:15 03/18/18 03/19/18 03/20/18 05:59 05:59 05:59 Intake Total 1080 1240 Output Total 900 1625 Balance 180 -385 Physical Exam - Physical Exam General Appearance: WD/WN, alert, no apparent distress EENT: No scleral icterus (R), No scleral icterus (L) Respiratory: No respiratory distress, No accessory muscle use Cardiac/Chest: normal peripheral pulses, regular rate, rhythm, No edema Skin: normal color, warm/dry, No cyanosis, No diaphoresis Neuro/Psych: alert, normal mood/affect, oriented x 3 ICD10 Worksheet Patient Problems: Problems Problem Status Onset Fever Acute Malaise Acute
[2018-03-19] MEDS: MELATONIN 3 MG TAB PO SCH (19:48)
[2018-03-20] MEDS: POLYETHYLENE GLYCOL 3350 17 GM PKT PO SCH (08:31)
[2018-03-20] MEDS: MENS MULTIVITAMIN PO SCH (08:32)
[2018-03-20] MEDS: RESVERATROL 100 MG PO SCH (08:32)
[2018-03-20] MEDS: DHA PO SCH (08:32)
[2018-03-20] MEDS: LACTOBACILLUS ACIDOPHILUS PO SCH (08:33)
--- NOTE | 2018-03-20 11:45 | SOAPPROG ---
SOAP Progress Note Assessment/Plan: Debility following acute viral gastrointestinal illness with recent West Nile virus encephalitis/meningitis. * Initial functional independence measure is 80 on 03/16/2018. Standby assist to contact guard assist for bed mobility. Contact guard assist for sit to stand with a front wheeled walker; occasionally retro pulse of. Ambulated 100 ft standby assist to contact guard assist with a front wheeled walker. Climbed and descended 12 stairs with 1 rail contact guard assist. Needs steadying assist for upper body and lower body dressing. Grooming and hygiene are done with modified assistance seated and with more assistance when standing. * Continue PT and OT to optimize mobility and activities of daily living. Given his age and the severity of his illness, it is likely he will continue to have some debility going forward. * THIS WEEK PATIENT'S FIM SCORE INCREASED TO 83 FROM 80 * Cognitive effects of encephalopathy. * Scored 16/30 on the [place] cognitive assessment, significantly impaired. Has decreased executive function, recall, and mathematics X/calculation skills. Does well with orientation language and naming. Decreased speed of processing. * Continue Speech and Language Pathology. Fatigue. Will benefit from endurance training. Also needs adequate rest during the day between therapy sessions. PATIENT PROBABLY NOT A CANDIDATE TO BEGIN RITALIN WITH HISTORY OF ABDOMINAL AORTIC ANEURYSM. Orthostatic hypotension. Not symptomatic. BLOOD PRESSURE ON 03/19 121/75. BLOOD PRESSURE ON 03/20 104/55 PATIENT DENIES FEELING LIGHTHEADED OR DIZZY. Benign prostatic hypertrophy, with discontinuation of tamsulosin due to orthostatic hypotension. * Postvoid residual 182 on 03/12/2018. Hyponatremia. * SEND LEVEL ON 03/19 134. Sodium 131 on labs 03/12/2018. Consistent with SIADH. Initiated 1200 cc fluid restriction on 03/13/2018, but he has been consistently consuming less than 1200 cc. * Sodium improved to 133 on 03/14/2018. This is likely a chronic issue and did not respond to fluid restriction as he was already taking less than 1200 cc. Will discontinue fluid restriction starting 03/16/2018. Anemia. It was improving during his hospitalization. His most recent hemoglobin and hematocrit were 11.3 and 32.8 on 03/10/2018. Right acromioclavicular separation of unclear age. He does not complain of any pain, and he will be observed for any limitation in his upper extremity function. Ascending aortic aneurysm. He will need followup after discharge. On echocardiogram, it was 4.4 cm, and he should have followup approximately every 6 months. It was stable compared to prior measurement of 4.5 cm. Compression fractures of unclear age. Unclear whether they may be related to his recent falls. He is not symptomatic. * Normal vitamin-D level on 03/12/2018. Prophylaxis. He has ambulated as far as 200 feet. He is not hemiplegic. If he continues to have improvement in his mobility, there will be no need for pharmacologic anticoagulation. He will have SCDs at night. Likely coronary artery disease. He will follow up with Cardiology after his discharge. DISPOSITION: Attended staffing, 15 min. Discussed with case management, dietitian, nursing, PT, OT, COOK HELPER [employer]GETABLE. Lives with his . WOULD LIKE TO COME IN FOR TRAINING AND CONSIDER COHABITATION IN LARGER ROOM IN PREPARATION FOR DISCHARGE Subjective: NO PROBLEMS REPORTED BY PATIENT. REHAB STAFF NOTES PATIENT HAS DECREASED ATTENTION AND VERY ABILITY THROUGHOUT THE DAY WHEN PERFORMING REHAB RELATED TASKS AND FUNCTIONS. Objective: Vital Signs Temp Pulse Resp BP Pulse Ox 36.8 C 76 16 104/55 L 95 03/20/18 06:09 03/20/18 06:09 03/20/18 06:09 03/20/18 06:09 03/20/18 06:09 Laboratory Results 03/19/18 09:12 03/19/18 03/20/18 03/21/18 05:59 05:59 05:59 Intake Total 1240 420 360 Output Total 1625 700 150 Balance -385 -280 210 Physical Exam - Physical Exam General Appearance: WD/WN, alert, no apparent distress Respiratory: lungs clear, normal breath sounds Abdomen: non-tender, soft Skin: normal color, warm/dry Neuro/Psych: alert, oriented x 3, depressed affect ICD10 Worksheet Patient Problems: Problems Problem Status Onset Fever Acute Malaise Acute
[2018-03-20] MEDS: MELATONIN 3 MG TAB PO SCH (22:54)
[2018-03-21] MEDS: POLYETHYLENE GLYCOL 3350 17 GM PKT PO SCH (08:17)
[2018-03-21] MEDS: DHA PO SCH (08:17)
[2018-03-21] MEDS: MENS MULTIVITAMIN PO SCH (08:17)
[2018-03-21] MEDS: LACTOBACILLUS ACIDOPHILUS PO SCH (08:18)
[2018-03-21] MEDS: RESVERATROL 100 MG PO SCH (08:18)
--- NOTE | 2018-03-21 11:10 | SOAPPROG ---
SOAP Progress Note Assessment/Plan: 77-year-old male status post West Nile virus encephalitis in January, status post retirement facility and discharge home with new weakness and falls in the setting of a separate viral enteritis, impairments in mobility and self-care Today's update: Overall doing well from a rehabilitation standpoint, he seemed confused about the presence of the ascending aortic aneurysm, but on further explanation he recalled that he had it. He stated that he would consider amantadine as an adjunctive therapy for cognition, but he was unsure. Monitoring postvoid residuals. Total of 35 min was spent on the floor in the care of the patient, the majority of which was spent in counseling coordination of care regarding rehab progress, coordination of care regarding aneurysm, and discussion with him about treatment options for cognition Encephalopathy: Acute viral gastroenteritis encephalopathy on top of premorbid West Nile virus encephalitis. Impairments in mobility, self-care, cognition, initial functional independence measure was 80 on 03/16/2018, increased to 83 the following week. He is requiring standby to contact guard assist with ambulation and ADLs, using a front wheel walker. Significant cognitive impairments on the [place]. * Disposition planning in progress, he may not be able to get sufficient care at home he is evaluating facilities. * Continue PT, OT, speech for impairments in mobility, self-care, cognition. * He will need follow up after discharge with cardiology for monitoring of his ascending aortic aneurysm, likely follow up with Neurology as well, PCP Fatigue: Likely related to encephalopathy. Caution with neuro stimulants given his existing ascending aortic aneurysm. Amantadine was offered to patient and he said that he would consider it, but was not interested at the time, 03/21/2018. * Continue supportive therapy, consider amantadine if patient is amenable * Monitor Orthostatic hypotension: Periodically symptomatic, unclear etiology. Could be related to hypovolemia, or prior tamsulosin use * Monitor fluid status * Continue to hold tamsulosin for now Benign prostatic hypertrophy: Tamsulosin was previously discontinued because of orthostatic hypotension. Postvoid residual was 182 on 03/12/2018. * Recheck postvoid residuals Hyponatremia: Previously felt consistent be with SIADH, went through. A fluid restriction with slight improvement, stable at approximately [id number] in the absence of any fluid restriction. * Continue to monitor clinically, will need follow up on this issue as an outpatient as well. Anemia: Unclear etiology, improved * Monitor clinically Previous right AC joint separation: Not functionally limiting or painful * Monitor Compression fractures of unclear etiology and H: May be related to recent falls , not clear. Asymptomatic per report. Normal vitamin-D level on 03/12/2018 * Monitor clinically Ascending aortic aneurysm: Stable on recent echocardiogram of 4.4 cm, recommended follow-up every 6 months * Follow-up with cardiology after discharge * Recommended follow-up every 6 months * Blood pressure control 03/17/18 08:17 03/17/18 09:23 03/19/18 08:39 03/21/18 11:02 03/21/18 11:11 Subjective: Chief complaint: Discharge planning No acute events overnight. Patient denies any new shortness of breath or chest pain, no new numbness, tingling, or weakness. Patient expresses some concern about discharge planning, unsure what he would like whether it is to go home with caregiver assistance or a facility, acknowledges that he has high care needs and the uncertainty around his prognosis may be hard on his . He plans to work with social work on this issue and the rest the team the following week. He seemed initially surprised about the presence of an ascending aortic aneurysm, but after further explanation, he recalled this diagnosis. Objective: Vital Signs Temp Pulse Resp BP Pulse Ox 36.6 C 82 16 110/74 97 03/21/18 07:30 03/21/18 07:30 03/21/18 07:30 03/21/18 07:30 03/21/18 07:30 Laboratory Results 03/19/18 09:12 03/20/18 03/21/18 03/22/18 05:59 05:59 05:59 Intake Total 420 980 Output Total 700 2060 400 Balance -280 -1080 -400 Physical Exam - Physical Exam General Appearance: WD/WN, alert, no apparent distress EENT: No scleral icterus (R), No scleral icterus (L) Respiratory: No respiratory distress, No accessory muscle use Cardiac/Chest: normal peripheral pulses, regular rate, rhythm, No edema Skin: normal color, warm/dry, No cyanosis, No diaphoresis Extremities: No pedal edema, No swelling Neuro/Psych: alert, normal mood/affect (Seem somewhat confused about diagnoses, but grossly logical) ICD10 Worksheet Patient Problems: Problems Problem Status Onset Fever Acute Malaise Acute
[2018-03-21] MEDS: MELATONIN 3 MG TAB PO SCH (20:39)
--- NOTE | 2018-03-22 08:30 | SOAPPROG ---
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 Rechecking. Participating well in therapies, continue rehab plan. Abdominal discomfort associated with urination appears to be related to muscle relaxation, does not appear to be related to cardiac or other etiology. A total of 15 min was spent on the floor in the care of the patient, the majority of which was spent in counseling coordination of care regarding the risks and benefits of amantadine as a neuro stimulant. Encephalopathy: Acute viral gastroenteritis encephalopathy on top of premorbid West Nile virus encephalitis. Impairments in mobility, self-care, cognition, initial functional independence measure was 80 on 03/16/2018, increased to 83 the following week. He is requiring standby to contact guard assist with ambulation and ADLs, using a front wheel walker. Significant cognitive impairments on the [place]. * Disposition planning in progress, he may not be able to get sufficient care at home he is evaluating facilities. * Continue PT, OT, speech for impairments in mobility, self-care, cognition. * He will need follow up after discharge with cardiology for monitoring of his ascending aortic aneurysm, likely follow up with Neurology as well, PCP Fatigue: Likely related to encephalopathy. Caution with neuro stimulants given his existing ascending aortic aneurysm. Amantadine was offered to patient and he said that he would consider it, but was not interested at the time, 03/21/2018. * Continue supportive therapy, consider amantadine if patient is amenable. Risks and benefits have been discussed with the patient and he will notify us if he is interested * Monitor Orthostatic hypotension: Periodically symptomatic, unclear etiology. Could be related to hypovolemia, or prior tamsulosin use * Monitor fluid status * Continue to hold tamsulosin for now Benign prostatic hypertrophy: Tamsulosin was previously discontinued because of orthostatic hypotension. Postvoid residual was 182 on 03/12/2018. * Recheck postvoid residuals Hyponatremia: Previously felt consistent be with SIADH, went through. A fluid restriction with slight improvement, stable in the absence of any fluid restriction. * Continue to monitor clinically, will need follow up on this issue as an outpatient as well. Anemia: Unclear etiology, improved * Monitor clinically Previous right AC joint separation: Not functionally limiting or painful * Monitor Compression fractures of unclear etiology: May be related to recent falls, not clear. Asymptomatic per report. Normal vitamin-D level on 03/12/2018 * Monitor clinically Ascending aortic aneurysm: Stable on recent echocardiogram of 4.4 cm, recommended follow-up every 6 months * Follow-up with cardiology after discharge * Recommended follow-up every 6 months * Blood pressure control 03/17/18 08:17 03/17/18 09:23 03/19/18 08:39 03/21/18 11:02 03/21/18 11:11 03/22/18 08:28 03/22/18 09:29 03/22/18 09:41 03/22/18 09:43 Subjective: Chief complaint: Rehab progress No acute events overnight. Patient denies any new shortness of breath or chest pain, no new numbness, tingling, weakness. He endorses that things are going well, he notes that he has had a little bit of abdominal discomfort if he has a very large void, resolves quickly, not associated with any lightheadedness, diaphoresis, or other symptoms. Passes quickly. He is unsure of the etiology, unclear how long it has been going on. Objective: Vital Signs Temp Pulse Resp BP Pulse Ox 36.8 C 88 18 101/64 95 03/21/18 20:00 03/21/18 20:00 03/21/18 20:00 03/21/18 20:00 03/21/18 20:00 Laboratory Results 03/19/18 09:12 03/21/18 03/22/18 03/23/18 05:59 05:59 05:59 Intake Total 980 1480 175 Output Total 2060 890 400 Balance -0134 960 -228 Physical Exam - Physical Exam General Appearance: WD/WN, alert, no apparent distress EENT: No scleral icterus (R), No scleral icterus (L) Respiratory: No respiratory distress, No accessory muscle use Cardiac/Chest: normal peripheral pulses, regular rate, rhythm, No edema, No diastolic murmur, No systolic murmur Abdomen: normal bowel sounds, non-tender, soft, No organomegaly, No pulsatile mass, No distended, No guarding Skin: normal color, warm/dry, No cyanosis, No diaphoresis Extremities: No pedal edema Neuro/Psych: alert, normal mood/affect ICD10 Worksheet Patient Problems: Problems Problem Status Onset Fever Acute Malaise Acute
[2018-03-22] MEDS: DHA PO SCH (08:36)
[2018-03-22] MEDS: LACTOBACILLUS ACIDOPHILUS PO SCH (08:37)
[2018-03-22] MEDS: MENS MULTIVITAMIN PO SCH (08:39)
[2018-03-22] MEDS: RESVERATROL 100 MG PO SCH (08:40)
[2018-03-22] MEDS: POLYETHYLENE GLYCOL 3350 17 GM PKT PO SCH (08:40)
[2018-03-23] MEDS: MELATONIN 3 MG TAB PO SCH (01:03)
[2018-03-23] MEDS: DHA PO SCH (08:08)
[2018-03-23] MEDS: MENS MULTIVITAMIN PO SCH (08:09)
[2018-03-23] MEDS: RESVERATROL 100 MG PO SCH (08:09)
[2018-03-23] MEDS: LACTOBACILLUS ACIDOPHILUS PO SCH (08:11)
[2018-03-23] MEDS: POLYETHYLENE GLYCOL 3350 17 GM PKT PO SCH ×2 (08:12→08:18)
--- NOTE | 2018-03-23 10:37 | SOAPPROG ---
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 * Initial functional independence measure is 80 on 03/16/2018; improved to 83. Standby assist for transfers. Ambulated 150 ft x 2 with trekking poles contact guard assist. Endurance is improving. Grooming and hygiene standing at the sink with front wheeled walker and close standby assist. Dresses with standby assist. Toilet transfers with minimal assist. Toileting with contact guard assist. * Continue PT and OT to optimize mobility and activities of daily living. Given his age and the severity of his illness, it is likely he will continue to have some debility going forward. Cognitive effects of encephalopathy. * Scored 16/30 on the [place] cognitive assessment, significantly impaired. Subsequently scored 21/30. Has decreased executive function, recall, and mathematics/calculation skills. Does well with orientation language and naming. Decreased speed of processing. * Continue Speech and Language Pathology. Fatigue. Improving with endurance training. He has declined the offer of neuro stimulants. Orthostatic hypotension. Not symptomatic. Benign prostatic hypertrophy, with discontinuation of tamsulosin due to orthostatic hypotension. * Postvoid residual 182 on 03/12/2018. 61 on 03/14/2018. Hyponatremia. * Sodium 131 on labs 03/12/2018. Consistent with SIADH. Initiated 1200 cc fluid restriction on 03/13/2018, but he has been consistently consuming less than 1200 cc. * Sodium improved to 133 on 03/14/2018. This is likely a chronic issue and did not respond to fluid restriction as he was already taking less than 1200 cc. Will discontinue fluid restriction starting 03/16/2018. Anemia. It was improving during his hospitalization. His most recent hemoglobin and hematocrit were 11.3 and 32.8 on 03/10/2018. Right acromioclavicular separation of unclear age. He does not complain of any pain, and he will be observed for any limitation in his upper extremity function. Ascending aortic aneurysm. He will need followup after discharge. On echocardiogram, it was 4.4 cm, and he should have followup approximately every 6 months. It was stable compared to prior measurement of 4.5 cm. Compression fractures of unclear age. Unclear whether they may be related to his recent falls. He is not symptomatic. * Normal vitamin-D level on 03/12/2018. Prophylaxis. He has ambulated as far as 200 feet. He is not hemiplegic. If he continues to have improvement in his mobility, there will be no need for pharmacologic anticoagulation. He will have SCDs at night. Likely coronary artery disease. He will follow up with Cardiology after his discharge. DISPOSITION: Lives with his . She is unlikely to provide significant physical assist for mobility so he needs a high level of independence to return home. With slow rate of improvement plan is to discharge to [facility] facility for continued therapies over a longer period of time. May discharge or 03/25/2018. 03/23/18 10:28 Subjective: No complaints. Asks whether she can have a relapse of West Nile virus. Asks again why he had a fever prior to his hospitalization. Otherwise without complaint. Objective: Vital Signs Temp Pulse Resp BP Pulse Ox 36.8 C 79 16 104/61 96 03/23/18 08:00 03/23/18 08:00 03/23/18 08:00 03/23/18 08:00 03/23/18 08:00 Laboratory Results 03/19/18 09:12 03/22/18 03/23/18 03/24/18 05:59 05:59 05:59 Intake Total 1480 2543 350 Output Total 890 2950 Balance 590 -407 350 Physical Exam - Physical Exam General Appearance: WD/WN, alert, no apparent distress Respiratory: No respiratory distress, No accessory muscle use Skin: normal color, warm/dry Neuro/Psych: alert, normal mood/affect ICD10 Worksheet Patient Problems: Problems Problem Status Onset Fever Acute Malaise Acute
[2018-03-23] MEDS ORDERED: MELATONIN 3 MG TAB PO PRN (11:26)
[2018-03-24] MEDS: DHA PO SCH (07:58)
[2018-03-24] MEDS: MENS MULTIVITAMIN PO SCH (07:59)
[2018-03-24] MEDS: LACTOBACILLUS ACIDOPHILUS PO SCH (07:59)
[2018-03-24] MEDS: POLYETHYLENE GLYCOL 3350 17 GM PKT PO SCH (08:01)
[2018-03-24] MEDS: RESVERATROL 100 MG PO SCH (08:01)
--- NOTE | 2018-03-24 10:32 | PDOREHIP ---
Admission IRF-DON - Admission - 3 Day Assessment Period Admission Date/Day 1: 03/11/18 Day 2: 03/12/18 Day 3: 03/13/18 - Active Diagnoses Comorbidities and Co-existing Conditions at Admission: 65459. None of the Above Discharge IRF-DON - Discharge - 3 Day Assessment Period 2 Days Prior to Anticipated Discharge Date: 03/23/18 1 Day Prior to Anticipated Discharge Date: 03/24/18 Anticipated Discharge Date: 03/25/18 - Discharge Skin Conditions Unhealed Pressure Ulcer (1 or more/Stage 1 or >)-Discharge: 0. No # Stage 1 Pressure Ulcers-Discharge: 0 # Stage 2 Pressure Ulcers-Discharge: 0 # of These Stage 2 Pressure Ulcers Present on Admission: 0 # Stage 3 Pressure Ulcers-Discharge: 0 # of These Stage 3 Pressure Ulcers Present on Admission: 0 # Stage 4 Pressure Ulcers-Discharge: 0 # of These Stage 4 Pressure Ulcers Present on Admission: 0 # Unstageable Pressure Ulcers (Non-remove Dress)-Discharge: 0 # These Unstageable Pressure Ulcers (NRD)-Present on Admit: 0 # Unstageable Pressure Ulcers (Slough/Eschar)-Discharge: 0 # These Unstageable Pressure Ulcers(Slough) Present on Admit: 0 # Unstageable Pressure Ulcers (Deep Tissue Injury)-Discharge: 0 # These Unstageable Pressure Ulcers (DTI) Present on Admit: 0
[2018-03-24 15:12] VITALS: BP 113/67
--- NOTE | 2018-03-24 19:21 | GDS ---
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 OTHER DISCHARGE DIAGNOSES: 1. Cognitive dysfunction. 2. Benign prostatic hypertrophy. 3. Chronic hyponatremia. 4. Ascending aortic aneurysm. 5. Likely coronary artery disease. COMPLICATIONS: There were none. CONSULTATIONS: There were none. PROCEDURES: There were none. HISTORY AND HOSPITAL COURSE: This patient presented to the [facility] al on 03/07/2018. He had been home following a hospitalization at the [facility] in [place] in January for West Nile virus encephalitis. This was followed by a fdc facility stay. He initially did well at home, but then began falling. He developed fever and malaise, nausea and vo miting and a significant decline in functional status and so he was brought to [facility]. There metabolic, infectious or other etiologies of his acute decline were rul ed out. Neurology assessed his current symptoms to be due to an unrelated virus causing a gastroente ritis and not to West Nile virus. With his debility he was recommended to have rehabilitation servic es. During his hospital stay he developed orthostatic hypotension. There was an echocardiogram obtained which showed overall normal cardiac function, mild mitral valve regurgitation and mild tricuspid valv e regurgitation. He was also assessed as having coronary artery disease with a history of an elevate d coronary artery calcium score and there had been an abnormal stress echocardiogram in 2009. He als o was noted to have an ascending aortic aneurysm of 4.5 cm. He did well in rehabilitation though his progress was somewhat limited. His initial functional indep endence measure was 80 on 03/16/2018, which is consistent with assisted living level of function, [facility] fdc facility. His functional independence measure improved to 83. He req uired standby assist for transfers. He was able to ambulate 150 feet with 2 trekking poles [address]a ct guard assist. He had improving endurance. He was able to do grooming and hygiene at the sink wit h a front-wheeled walker and close standby assist. Dressing required standby assist. Toilet transfe rs required minimal assist and he required contact guard assist for toileting. Regarding cognition, the Gray Cognitive Assessment was administered, and he scored 16/30 which is significant impairment. He was subsequently tested and he scored 21/30 which still is in the impair ed range. He had decreased executive function recall and mathematics and calculation skills. 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 He did well with orienta tion, language, and naming. There was a decreased speed of processing noted. He had orthostatic hypotension during his stay. He had been on tamsulosin for benign prostatic hyper trophy, which was discontinued due to the orthostatic hypotension. Subsequently, he was not symptoma tic. He had hyponatremia with a sodium as low as 131. 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 He was placed on a fluid restriction of 1200 cc but he was consistently consuming le ss than 1200 cc. 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 Further evaluation was not done. Regarding the ascending aortic aneurysm, it was 4.4 on echocardiogram in the hospital. He had a prio r measurement of 4.5 cm. He should have follow up approximately every 6 months. DISCHARGE PLAN: Discharge disposition is to fdc facility as his progress in inpatient re hab rehabilitation was slow and he will need a longer time at a lower intensity of therapies to nilay nue his rehabilitation. DIET: Regular. ACTIVITY: Needs supervision for all activities of daily living requiring mobility. MEDICATIONS ON DISCHARGE: 1. Acetaminophen 650 mg p.o. q.6 hours p.r.n. 2. DHA 830 mg p.o. daily. 3. Lactobacillus acidophilus 1 capsule p.o. daily. 4. Multivitamin 1 tab p.o. daily. 5. Polyethylene glycol 17 g p.o. daily. 6. Resveratrol 100 mg p.o. daily. 7. Senna 1 tab p.o. twice daily p.r.n. ISSUES TO BE ADDRESSED AT FOLLOW UP: 1. Mobility, activities of daily living, and his cognitive impairment. He will continue speech and language pathology at the fdc facility. 2. BPH and orthostatic hypotension. Advise monitoring for recurrent symptoms of BPH and if he is to resume tamsulosin, would watch carefully for orthostatic hypotension. 3. Ascending aortic aneurysm. He will need surveillance approximately every 6 months. 4. Likely coronary artery disease. He should see Cardiology after his discharge. 5. History of West Nile virus encephalitis. He will follow up with neurologist, Dr. Mensah after his d ischarge. 6. In the hospital discharge summary, there was mention of a history of mantle cell lymphoma, which was stable, but he should follow up routinely with his oncologist at [facility]. 7. Orthostatic hypotension and history of coronary artery disease. He should follow up with Cardioalesha huffman after his discharge. Consulting medical operations supervisor in the hospital was Dr. Rhea Lovett, so he should fo llow up with her. Greater than 30 minutes were spent on this discharge including medication reconciliation, coordinatio n of care, and counseling patient and . Copy requested to: Sunitha Salazar MD attending at [facility]. [facility] /[id number]/MODL
== END 2018-03-24 15:15 | DRG 945 ==
LOC: BREH 03-11 13:30
PROVIDERS: ADMIT Internal Medicine; ATTEND Internal Medicine
PROC: F0636ZZ Communicative/Cognitive Integration Skills Treatment of Neurological System - Whole Body (ICD-10-PCS; principal; 2018-03-11)
PROC: F08Z7ZZ Vocational Activities and Functional Community or Work Reintegration Skills Treatment (ICD-10-PCS; principal; 2018-03-11)
PROC: F07M3ZZ Motor Function Treatment of Musculoskeletal System - Whole Body (ICD-10-PCS; principal; 2018-03-11)
DX: Z51.89 Encounter for other specified aftercare (principal); R53.1 Weakness; Z86.61 Personal history of infections of the central nervous system; R41.841 Cognitive communication deficit; R41.844 Frontal lobe and executive function deficit; E87.1 Hypo-osmolality and hyponatremia; I95.1 Orthostatic hypotension; C85.90 Non-Hodgkin lymphoma, unspecified, unspecified site; I25.10 Atherosclerotic heart disease of native coronary artery without angina pectoris; J44.9 Chronic obstructive pulmonary disease, unspecified; N40.0 Benign prostatic hyperplasia without lower urinary tract symptoms; I71.2 Thoracic aortic aneurysm, without rupture; Z87.311 Personal history of (healed) other pathological fracture; Z87.891 Personal history of nicotine dependence
CPT/HCPCS: 92507-GN; 92523-GN; 97110-GO; 97110-GP; 97112-GP; 97116-GP; 97162-GP; 97166-GO; 97530-GO; 97530-GP; 97535-GO; G0515-GO